=== PATIENT | female | born 1925 | race Caucasian/White ===

== ENCOUNTER 2016-06-21 12:39 | Emergency (ER) | payer OTHER ==
[~2016-06-21] VITALS: Ht 165.1 cm; Wt 44.3 kg
[~2016-06-21 12:39] MED LIST: ACET-1256 PO; ALEN70TA4 PO; AMLO5TAB4 PO; CLON0.5T3 PO; DOCU-94 PO; LSN25 PO; MULT-730 PO; PANT1TAB48 PO; ULT50 PO
[2016-06-21 12:43] VITALS: TEMP 36.7; Ht 165.1 cm; Wt 44.3 kg
[2016-06-21] MEDS ORDERED: SODIUM CHLORIDE 0.9% 1000ML 1,000 ML IV STA (12:52)
[2016-06-21] MEDS ORDERED: ONDANSETRON INJ 2 MG/ML 2 ML VIAL IV STA (12:52)
[2016-06-21] MEDS ORDERED: OPTIRAY 320 IV PRN (13:00)
--- NOTE | 2016-06-21 13:21 | DIAGNOSTIC IMAGING REPORT ---
CHEST ONE VIEW PORTABLE CLINICAL HISTORY: Abdominal pain. COMPARISON STUDY: Chest radiograph January 05, 2016. FINDINGS: A left subclavian pacemaker and cholecystectomy clips are present. There is no pneumothorax or pleural effusion. Pulmonary vascularity is normal. Right apical irregular density is unchanged since exam of February 12, 2012. There is no consolidation. IMPRESSION: No acute cardiopulmonary findings. Electronically signed by: Kurt Alexander M.D. 06/21/2016 1:20 PM Dictated Date/Time: 06/21/2016 1:19 PM
[2016-06-21 13:34] LABS: BASO % 0.4 %; BASO ABS # 0.02 K/uL (0-0.2); COMPLETE YES; EOS % 0.5 %; HEMATOCRIT 44.5 % (37-47); IG% 0.2 %; LYMPH % 23.8 %; LYMPH ABS # 1.35 K/uL (1.2-3.4); MEAN CELL VOLUME 96.5 fL (80-100); MEAN CORPUSCULAR HEMOGLOBIN 32.8 pg (25-34); MEAN CORPUSCULAR HGB CONC 33.9 g/dl (32-36); MEAN PLATELET VOLUME 8.7 fL (7.4-10.4); NEUT % 68.1 %; PLATELET COUNT 161 K/uL (130-400); RED BLOOD COUNT 4.61 M/uL (4.2-5.4); WHITE BLOOD COUNT 5.68 K/uL (4.8-10.8)
[2016-06-21 13:50] LABS: BUN/CREATININE RATIO 14.4 (10-20); CALCIUM 9.8 mg/dl (8.5-10.1); POTASSIUM 3.6 mmol/L (3.5-5.1)
[2016-06-21] MEDS ORDERED: LISI-729 PO (14:48)
[2016-06-21 15:01] LABS: URINE APPEARANCE CLEAR (CLEAR); URINE BILIRUBIN NEG (NEG); URINE COLOR YELLOW; URINE NITRITE NEG (NEG); URINE SPECIFIC GRAVITY 1.007 (1.000-1.030); UROBILINOGEN NEG (NEG); ZZUR CULT IF INDIC CLEAN CATCH NO
[2016-06-21 15:06] LABS: MANUAL MICROSCOPIC REQUIRED? NO; REVIEW REQ? NO
--- NOTE | 2016-06-21 15:53 | DIAGNOSTIC IMAGING REPORT ---
ABDOMEN AND PELVIS CT WITH IV AND ORAL CONTRAST CT DOSE: 250.85 mGy.cm HISTORY: Pain ABDOMINAL PAIN/GI TECHNIQUE: Multiaxial CT images of the abdomen and pelvis were performed following the use of intravenous and oral contrast. COMPARISON STUDY: 10/13/2015 FINDINGS: Lung bases are remarkable for minimal scattered atelectatic change. This is similar as compared to the prior study. Minimal bronchiectatic change medial right base is present. Several small calcified granulomas are noted. Liver is uniform. Mild biliary ductal prominence. Prior cholecystectomy. Mild prominence of the pancreatic duct. Mild fullness of the pancreatic tail. Circumferential wall thickening of the gastric antrum. Mild perigastric infiltrative change. No evidence for abscess or collection. Opacity is a mild nonobstructive ileus. There is no significant free fluid within the pelvic cul-de-sac. Bladder is midline. No significant pelvic or inguinal adenopathy. Kidneys enhance uniformly. There are negative for hydronephrosis. IMPRESSION: 1. Annular thickening of the gastric antrum raising the possibility of gastritis, neoplasm, peptic ulcer disease, versus the less likely possibility of artifact. 2. Endoscopic evaluation is suggested as follow-up. 3. 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 4. No ductal prominence most likely on a postcholecystectomy basis. 5. Mild fullness pancreatic tail uncertain significance although correlation with pancreatic enzymes status is suggested. 6. Mild reactive ileus Electronically signed by: Vance Vance M.D. 06/21/2016 3:52 PM Dictated Date/Time: 06/21/2016 3:45 PM
--- NOTE | 2016-06-21 16:36 | EMERGENCY ROOM VISIT NOTE ---
History Report prepared by Viola: Barbara Calhoun Under the Supervision of: Dr. Fran Garcia D.O. First contact with patient: 12:46 Chief Complaint: ABDOMINAL PAIN Stated Complaint: ABD AND BACK PAIN Nursing Triage Summary: Triage note: pt reports "i am just plain sick and i am having pain from my abd clear through to my back." pt reports pain started this am. History of Present Illness The patient is a 89 year old female who presents to the Emergency Room with complaints of worsening abdominal pain starting last night. The patient currently rates her discomfort as a 5/10 in severity. She had been experiencing this pain in her stomach for a long time, but last night it worsened and went through to her back. She was seen in the ED previously where nothing was found. She went to the doctor's 2 days ago for stomach pain. She was started on pantoprazole. She suspects that the new medication might have something to do with the worsening of her pain. She reports feeling nauseous. She denies any vomiting. She has had a cholecystectomy in the past. She reports no other abdominal surgeries. Source of History: patient Onset: last night Position: abdomen Symptom Intensity: 5/10 Timing: worsening Associated Symptoms: + back pain, + nausea, No vomiting Review of Systems See HPI for pertinent positives & negatives. A total of 10 systems reviewed and were otherwise negative. Past Medical & Surgical Medical Problems: (1) Anxiety (2) Chest pain (3) CKD (chronic kidney disease) stage 3, GFR 30-59 ml/min (4) Compression fracture (5) Compression fracture (6) Constipation (7) Essential hypertension (8) Gastroesophageal reflux disease (9) Tonsil cancer Surgical Problems: (1) H/O colonoscopy (2) H/O endoscopy (3) History of cholecystectomy (4) Pacemaker (5) Status post cholecystectomy (6) TONSIL SURGERY Family History Diabetes mellitus FH: cancer BROTHER SISTER FH: heart disease Hypertension Kidney disease FATHER Social History Smoking Status: Never Smoker Alcohol Use: none Drug Use: none Marital Status: Housing Status: lives with family Occupation Status: retired Current/Historical Medications Scheduled Alendronate Sodium (Fosamax), 70 MG PO WK Amlodipine Besylate (Norvasc), 2.5 MG PO DAILY Lisinopril (Prinivil), 2.5 MG PO DAILY Pantoprazole (Protonix), 40 MG PO DAILY Scheduled PRN Acetaminophen (Tylenol), 2 TAB PO AMPM PRN for Pain Clonazepam (Klonopin), 0.5 MG PO BID PRN for Anxiety Allergies Coded Allergies: Sulfa Antibiotics (Verified Allergy, Unknown, rash, 06/01/14) Physical Exam Vital Signs Date Time Temp Pulse Resp B/P Pulse Ox O2 Delivery O2 Flow Rate FiO2 06/21/16 14:30 75 16 167/94 94 Room Air 06/21/16 12:43 36.7 67 18 178/84 97 Room Air Physical Exam CONSTITUTIONAL/VITAL SIGNS: Reviewed / noted above. GENERAL: Non-toxic in appearance. INTEGUMENTARY: Warm, dry, and [place]. HEAD: Normocephalic. EYES: without scleral icterus or trauma. ENT/OROPHARYNX: clear and moist. LYMPHADENOPATHY/NECK: Is supple without lymphadenopathy or meningismus. RESPIRATORY: Lungs clear and equal. CARDIOVASCULAR: Regular rate and rhythm. GI/ABDOMEN: Soft with mild tenderness to the epigastric area. No organomegaly or pulsatile mass. No rebound or guarding. Normal bowel sounds. EXTREMITIES: Warm and well perfused. BACK: No CVA tenderness. NEUROLOGICAL: Intact without focal deficits. PSYCHIATRIC: normal affect. MUSCULOSKELETAL: Normally developed with good muscle tone. Medical Decision & Procedures ER Provider Diagnostic Interpretation: X ray results and stated below per my interpretation and radiology interpretation. Radiology results as stated below per my review and radiologist interpretation: CHEST ONE VIEW PORTABLE CLINICAL HISTORY: Abdominal pain. COMPARISON STUDY: Chest radiograph January 05, 2016. FINDINGS: A left subclavian pacemaker and cholecystectomy clips are present. There is no pneumothorax or pleural effusion. Pulmonary vascularity is normal. Right apical irregular density is unchanged since exam of February 12, 2012. There is no consolidation. IMPRESSION: No acute cardiopulmonary findings. Electronically signed by: Kurt Alexander M.D. 06/21/2016 1:20 PM Dictated Date/Time: 06/21/2016 1:19 PM ABDOMEN AND PELVIS CT WITH IV AND ORAL CONTRAST CT DOSE: 250.85 mGy.cm HISTORY: Pain ABDOMINAL PAIN/GI TECHNIQUE: Multiaxial CT images of the abdomen and pelvis were performed following the use of intravenous and oral contrast. COMPARISON STUDY: 10/13/2015 FINDINGS: Lung bases are remarkable for minimal scattered atelectatic change. This is similar as compared to the prior study. Minimal bronchiectatic change medial right base is present. Several small calcified granulomas are noted. Liver is uniform. Mild biliary ductal prominence. Prior cholecystectomy. Mild prominence of the pancreatic duct. Mild fullness of the pancreatic tail. Circumferential wall thickening of the gastric antrum. Mild perigastric infiltrative change. No evidence for abscess or collection. Opacity is a mild nonobstructive ileus. There is no significant free fluid within the pelvic cul-de-sac. Bladder is midline. No significant pelvic or inguinal adenopathy. Kidneys enhance uniformly. There are negative for hydronephrosis. IMPRESSION: 1. Annular thickening of the gastric antrum raising the possibility of gastritis, neoplasm, peptic ulcer disease, versus the less likely possibility of artifact. 2. Endoscopic evaluation is suggested as follow-up. 3. 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 4. No ductal prominence most likely on a postcholecystectomy basis. 5. Mild fullness pancreatic tail uncertain significance although correlation with pancreatic enzymes status is suggested. 6. Mild reactive ileus Electronically signed by: Vance Vance M.D. 06/21/2016 3:52 PM Dictated Date/Time: 06/21/2016 3:45 PM Laboratory Results 06/21/16 13:25 Red Blood Count 4.61, Mean Corpuscular Volume 96.5, Mean Corpuscular Hemoglobin 32.8, Mean Corpuscular Hemoglobin Concent 33.9, Mean Platelet Volume 8.7, Neutrophils (%) (Auto) 68.1, Lymphocytes (%) (Auto) 23.8, Monocytes (%) (Auto) 7.0, Eosinophils (%) (Auto) 0.5, Basophils (%) (Auto) 0.4, Neutrophils # (Auto) 3.87, Lymphocytes # (Auto) 1.35, Monocytes # (Auto) 0.40, Eosinophils # (Auto) 0.03, Basophils # (Auto) 0.02 06/21/16 13:25 Test 06/21/16 13:25 06/21/16 14:25 White Blood Count 5.68 K/uL (4.8-10.8) Red Blood Count 4.61 M/uL (4.2-5.4) Hemoglobin 15.1 g/dL (12.0-16.0) Hematocrit 44.5 % (37-47) Mean Corpuscular Volume 96.5 fL (80-100) Mean Corpuscular Hemoglobin 32.8 pg (25-34) Mean Corpuscular Hemoglobin Concent 33.9 g/dl (32-36) Platelet Count 161 K/uL (130-400) Mean Platelet Volume 8.7 fL (7.4-10.4) Neutrophils (%) (Auto) 68.1 % Lymphocytes (%) (Auto) 23.8 % Monocytes (%) (Auto) 7.0 % Eosinophils (%) (Auto) 0.5 % Basophils (%) (Auto) 0.4 % Neutrophils # (Auto) 3.87 K/uL (1.4-6.5) Lymphocytes # (Auto) 1.35 K/uL (1.2-3.4) Monocytes # (Auto) 0.40 K/uL (0.11-0.59) Eosinophils # (Auto) 0.03 K/uL (0-0.5) Basophils # (Auto) 0.02 K/uL (0-0.2) RDW Standard Deviation 47.3 fL (36.4-46.3) RDW Coefficient of Variation 13.4 % (11.5-14.5) Immature Granulocyte % (Auto) 0.2 % Immature Granulocyte # (Auto) 0.01 K/uL (0.00-0.02) Prothrombin Time 11.0 SECONDS (9.0-12.0) Prothromb Time International Ratio 1.0 (0.9-1.1) Activated Partial Thromboplast Time 25.9 SECONDS (21.0-31.0) Partial Thromboplastin Ratio 1.0 Anion Gap 7.0 mmol/L (3-11) Est Creatinine Clear Calc Drug Dose 27.2 ml/min Estimated GFR () 58.3 Estimated GFR (Non- 50.3 BUN/Creatinine Ratio 14.4 (10-20) Lactic Acid Level 0.9 mmol/L (0.4-2.0) Calcium Level 9.8 mg/dl (8.5-10.1) Total Bilirubin 0.5 mg/dl (0.2-1) Direct Bilirubin 0.1 mg/dl (0-0.2) Aspartate Amino Transf (AST/SGOT) 21 U/L (15-37) Alanine Aminotransferase (ALT/SGPT) 20 U/L (12-78) Alkaline Phosphatase 56 U/L (45-117) Total Protein 7.5 gm/dl (6.4-8.2) Albumin 4.0 gm/dl (3.4-5.0) Lipase 244 U/L (73-393) Urine Color YELLOW Urine Appearance CLEAR (CLEAR) Urine pH 7.0 (4.5-7.5) Urine Specific [place] 1.007 (1.000-1.030) Urine Protein NEG (NEG) Urine Glucose (UA) NEG (NEG) Urine Ketones NEG (NEG) Urine Occult Blood TRACE (NEG) Urine Nitrite NEG (NEG) Urine Bilirubin NEG (NEG) Urine Urobilinogen NEG (NEG) Urine Leukocyte Esterase NEG (NEG) Urine WBC (Auto) 0 /hpf (0-5) Urine RBC (Auto) 0-4 /hpf (0-4) Urine Hyaline Casts (Auto) 0 /lpf (0-5) Urine Epithelial Cells (Auto) 5-10 /lpf (0-5) Urine Bacteria (Auto) NEG (NEG) Laboratory results as stated above per my review. Medications Administered Medications (Trade) Dose Ordered Sig/Francine Route Start Time Stop Time Status Last Admin Dose Admin Sodium Chloride (Nss 1000ml) 1,000 ml @ 200 mls/hr Q5H STAT IV 06/21/16 12:52 06/21/16 17:51 06/21/16 13:40 200 MLS/HR Ondansetron HCl (Zofran Inj) 4 mg NOW STAT IV 06/21/16 12:52 06/21/16 12:54 DC 06/21/16 13:40 4 MG ED Course 1247: Previous medical records were reviewed. The patient was evaluated in room C2B. A complete history and physical examination was performed. 1252: Zofran Inj 4 mg IV, NSS 1000 ml @ 200 mls/hr IV. 1615: I discussed the patient's case with Dr. Childress, [facility] - gastroenterology. The patient will follow up in the office next week for EGD. 1629: On reevaluation, the patient is resting comfortably. I discussed the results and findings with the patient. She verbalized agreement of the treatment plan. She was discharged home. Medical Decision Differential considered: pancreatitis, hepatitis, or acute cholecystitis, AAA, UTI, pyelonephritis, kidney stones, appendicitis, diverticulitis, shingles, bowel obstruction mesenteric ischemia, intussusception,hernia. This is an 89-year-old female who presents to the ED with a chief complaint of epigastric abdominal pain that started last night. She reports chronic epigastric pain but it got worse last night and radiates into the back. Her vital signs are stable. Physical exam did not reveal any significant abnormalities other than mild epigastric tenderness. CBC is normal. Chest x- ray was negative for acute disease. Complete metabolic panel was normal. Lactate was negative. Lipase is negative. Urine did not show infection. A CT scan of the abdomen and pelvis revealed some thickening of the gastric antrum. I spoke with Dr. Childress about this. She will contact the patient for outpatient endoscopy next week. The patient was treated as above. The patient is felt to be stable for discharge. Consults Time Called: 1607 Consulting Physician: Dr. Childress, [facility] - gastroenterology Returned Call: 1615 I discussed the patient's case with her. The patient will follow up in the office next week for EGD. Impression Primary Impression: Epigastric abdominal pain Scribe Attestation The scribe's documentation has been prepared under my direction and personally reviewed by me in its entirety. I confirm that the note above accurately reflects all work, treatment, procedures, and medical decision making performed by me. Departure Information Dispostion Home / Self-Care Referrals Kady Benoit M.D. (PCP) Patient Instructions My [facility] Additional Instructions Dr. Childress's office will contact you for endoscopy next week. Return for any concerns or worsening.
[2016-06-21 17:06] VITALS: BP 176/84; PULSE 62; O2SAT 98
== END 2016-06-21 17:10 | disposition home or self-care (01) ==
LOC: C.EDB 12:40 → C.EDC 17:10
DX: R10.13 Epigastric pain (principal); I12.9 Hypertensive chronic kidney disease with stage 1 through stage 4 chronic kidney disease, or unspecified chronic kidney disease; N18.3 Chronic kidney disease, stage 3 (moderate); K21.9 Gastro-esophageal reflux disease without esophagitis; F41.9 Anxiety disorder, unspecified; Z87.81 Personal history of (healed) traumatic fracture; Z90.49 Acquired absence of other specified parts of digestive tract; Z95.0 Presence of cardiac pacemaker; Z79.899 Other long term (current) drug therapy; Z88.2 Allergy status to sulfonamides; Z83.3 Family history of diabetes mellitus; Z80.9 Family history of malignant neoplasm, unspecified; Z82.49 Family history of ischemic heart disease and other diseases of the circulatory system; Z84.1 Family history of disorders of kidney and ureter

== ENCOUNTER → 2016-06-25 | Day surgery (SDC) | payer OTHER ==
[2016-06-24 11:25] VITALS: BMI 16.0
[~2016-06-25] VITALS: Ht 165.1 cm; Wt 45.5 kg
[~2016-06-25] MED LIST changes: -DOCU-94 PO; +LIDOCAINE HCL 2% 2 ML VIAL (20MG/ML) ONE; +LISI-729 PO; -LSN25 PO; -MULT-730 PO; +ONDANSETRON INJ 2 MG/ML 2 ML VIAL IV PRN; +PROPOFOL IV EMULSION 10 MG/ML 20 ML VIAL IV ONE; -ULT50 PO
[2016-06-25 08:54] VITALS: Ht 165.1 cm; Wt 45.5 kg
[2016-06-25 09:00] VITALS: TEMP 36.5
--- NOTE | 2016-06-25 09:15 | Endo History and Physical ---
History & Physical Date of Service: Jun 25, 2016. Chief Complaint: Epigastric pain Referring Physician: Dr. Benoit History of Present Illness 89 year old with abdominal pain for several months. Patient without dysphagia. Past Medical History Neurological Disorder, Osteoporosis, Arthritis, Pacemaker, Gastrointestinal Disorder, Anxiety, Reflux, Cancer, Hypertension, Kidney Disease, Other Past Surgical History Hx Cardiac Surgery: No Hx Internal Defibrillator: No Hx Pacemaker: Yes (~5 YEARS AGO) Hx Abdominal Surgery: Yes (SAVI) Hx of Implantable Prosthesis: No Hx Post-Op Nausea and Vomiting: No Hx Cancer Surgery: Yes (RT TONSILLECTOMY) Hx Thoracic Surgery: No Hx Orthopedic: No Hx Urinary Tract Surgery: No Family History None Social History Smoking Status: Never Smoker Hx Substance Use: No Hx Alcohol Use: No Allergies Coded Allergies: Sulfa Antibiotics (Verified Allergy, Unknown, RASH, 06/24/16) Current Medications Reported Home Medications Medications Dose Route/Sig Max Daily Dose Days Date Category Dose Instructions Prinivil (Lisinopril) 5 Mg Tab 2.5 Mg PO DAILY 06/21/16 Reported Tylenol (Acetaminophen) 500 Mg Tab 2 Tab PO AMPM PRN 01/05/16 Reported Fosamax (Alendronate Sodium) 70 Mg Tab 70 Mg PO WK 01/05/16 Reported TAKES THURSDAYS Protonix (Pantoprazole) 40 Mg Tab 40 Mg PO DAILY 02/12/12 Reported Klonopin (Clonazepam) 0.5 Mg Tab 0.5 Mg PO BID PRN 02/12/12 Reported Norvasc (Amlodipine Besylate) 5 Mg Tab 2.5 Mg PO DAILY 02/12/12 Reported Vital Signs Weight (Kilograms): 45.45 Height (Feet): 5 Height (Inches): 5 Date Time Temp Pulse Resp B/P Pulse Ox O2 Delivery O2 Flow Rate FiO2 06/25/16 09:00 36.5 68 20 173/89 99 Room Air Physical Exam General Appearance: no apparent distress Respiratory/Chest: Auscultation: breath sounds normal Cardiovascular: Heart Auscultation: II/ FLACO Abdomen: Inspection & Palpation: soft, pertinent finding (mild epigastric tenderness) Assessment and Plan Patient with a abdominal pain, likely related to use of a bisphosphonate. Plan EGD today
--- NOTE | 2016-06-25 09:32 | Discharge Instructions ---
Endoscopy Patient Instructions Date / Procedure(s) Performed Jun 25, 2016. EGD Allergy Information Coded Allergies: Sulfa Antibiotics (Verified Allergy, Unknown, RASH, 06/24/16) Discharge Date / Findings Jun 25, 2016. Diffuse gastritis Provider Instructions Activity Restrictions - No exercising or heavy lifting for 24 hours. - Do not drink alcohol the day of the procedure. - Do not drive a car or operate machinery until the day after the procedure. - Do not make any important decisions or sign important papers in 24 hours after the procedure. Following Day: - Return to full activity which may include returning to work/school. Diet Start your diet with liquids and light foods (jello, soup, juice, toast). Then eat your usual diet if not nauseated. Treatment For Common After Affects For mild abdominal pain, bloating, or excessive gas: - Rest - Eat lightly - Lie on right side Follow-Up Information Would suggest stopping the Fosamax as this could be causing your symptoms Continue the Protonix 1 time daily Follow-up with Dr. Benoit Anesthesia Information What You Should Know You have had a procedure that required some medicine to reduce anxiety and discomfort. This treatment is called moderate sedation. After receiving the treatment, you may be sleepy, but you will be able to breathe on your own. The effects of the treatment may last for several hours. Follow these instructions along with Activity/Diet recommendations noted above: * Do NOT do anything where dizziness or clumsiness would be dangerous. * Rest quietly at home today, then you can be up and about tomorrow. * Have a responsible person stay with you the rest of today. * You may have had an I.V. today. If so, you may take the dressing off later today. Recommendations Call your doctor if: * Trouble breathing * Continuous vomiting for more than 24 hours * Temperature above 101 degrees * Severe abdominal pain or bloating * Pain not relieved by pain medicine ordered * There is increased drainage or redness from any incision * A large amount of rectal bleeding greater than 2-3 tablespoons. (If you had a polyp/s removed or have hemorrhoids, a small amount of blood - from the rectum is to be expected.) * You have any unanswered questions or concerns. IN THE EVENT OF A SERIOUS EMERGENCY, GO TO THE NEAREST EMERGENCY ROOM Your discharge instructions were prepared by provider Paola Moore. Patient Instructions Signature Page Christa Showers Patient (or Guardian) Signature/Date: I have read and understand the instructions given to me by my caregivers. Caregiver/RN/Doctor Signature/Date: The above-named patient and/or guardian has received patient instructions on this date. + Original Patient Signature Page (only) stays with chart. Please make copy for patient.
--- NOTE | 2016-06-25 09:46 | GI REPORT ---
Procedure Date: 06/25/2016 9:10 AM Procedure: Upper GI endoscopy Indications: Epigastric abdominal pain Medicines: Monitored Anesthesia Care Complications: No immediate complications. Estimated blood loss: Minimal. Estimated Blood Loss: Estimated blood loss was minimal. Procedure: Pre-Anesthesia Assessment: - Prior to the procedure, a History and Physical was performed, and patient medications, allergies and sensitivities were reviewed. The patient's tolerance of previous anesthesia was reviewed. - The risks and benefits of the procedure and the sedation options and risks were discussed with the patient. All questions were answered and informed consent was obtained. - Patient identification and proposed procedure were verified prior to the procedure by the physician, the nurse and the cooker casing. The procedure was verified in the procedure room. - Pre-procedure physical examination revealed no contraindications to sedation. - ASA Grade Assessment: III - A patient with severe systemic disease. - After reviewing the risks and benefits, the patient was deemed in satisfactory condition to undergo the procedure. - The anesthesia plan was to use monitored anesthesia care (MAC). - Immediately prior to administration of medications, the patient was re-assessed for adequacy to receive sedatives. - The heart rate, respiratory rate, oxygen saturations, blood pressure, adequacy of pulmonary ventilation, and response to care were monitored throughout the procedure. - The physical status of the patient was re-assessed after the procedure. After obtaining informed consent, the endoscope was passed under direct vision. Throughout the procedure, the patient's blood pressure, pulse, and oxygen saturations were monitored continuously. The Scope was introduced through the mouth, and advanced to the third part of duodenum. The upper GI endoscopy was accomplished without difficulty. The patient tolerated the procedure well. Findings: The examined esophagus was normal. The Z-line was regular and was found 38 cm from the incisors. Diffuse moderate inflammation characterized by congestion (edema), erythema and granularity was found in the entire examined stomach. Biopsies were taken with a cold forceps for histology. Estimated blood loss was minimal. The examined duodenum was normal. Impression: - Normal esophagus. - Z-line regular, 38 cm from the incisors. 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 Biopsied. - Normal examined duodenum. Recommendation: - Discharge patient to home (ambulatory). - Advance diet as tolerated today. - Await pathology results. - Consider stopping Fosamax Gwendolyn Andersen DO 06/25/2016 9:46:24 AM This report has been signed electronically. Note Initiated On: 06/25/2016 9:10 AM I attest to the content of the Intraoperative Record and orders documented therein, exceptions below
[2016-06-25 10:07] VITALS: BP 162/76; PULSE 62; O2SAT 96
--- NOTE | 2016-06-25 10:14 | Anesthesiology Progress Note ---
Anesthesia Post Op Note Date & Time Jun 25, 2016 at 10:13 Vital Signs Pain Intensity: 0 Vital Signs Past 12 Hours Date Time Temp Pulse Resp B/P Pulse Ox O2 Delivery O2 Flow Rate FiO2 06/25/16 10:07 62 20 162/76 96 Room Air 06/25/16 09:52 60 16 105/72 99 Room Air 06/25/16 09:36 65 16 111/48 100 Room Air 06/25/16 09:00 36.5 68 20 173/89 99 Room Air Notes Mental Status: alert / awake / arousable, participated in evaluation Pt Amnestic to Procedure: Yes Nausea / Vomiting: adequately controlled Pain: adequately controlled Airway Patency, RR, SpO2: stable & adequate BP & HR: stable & adequate Hydration State: stable & adequate Anesthetic Complications: no major complications apparent
== END | disposition home or self-care (01) ==
LOC: C.GI 08:28
PROVIDERS: ATTEND Internal Medicine Gastroenterology
DX: K29.50 Unspecified chronic gastritis without bleeding (principal); R10.13 Epigastric pain; I10 Essential (primary) hypertension; M81.0 Age-related osteoporosis without current pathological fracture

== ENCOUNTER 2016-10-27 13:23 | Observation (INO) | payer OTHER ==
[~2016-10-27] VITALS: Ht 152.4 cm; Wt 41.0 kg
[~2016-10-27 13:23] MED LIST changes: -LIDOCAINE HCL 2% 2 ML VIAL (20MG/ML) ONE; -ONDANSETRON INJ 2 MG/ML 2 ML VIAL IV PRN; -PROPOFOL IV EMULSION 10 MG/ML 20 ML VIAL IV ONE
[2016-10-27] MEDS ORDERED: NITROGLYCERIN 0.4 MG SL PER TAB CHARGE SL STA (13:42)
[2016-10-27] MEDS ORDERED: ASPIRIN 324 MG CHEW PO STA (13:42)
--- NOTE | 2016-10-27 13:49 | EMERGENCY ROOM VISIT NOTE ---
History First contact with patient: 13:31 Chief Complaint: CHEST PAIN Stated Complaint: PAIN ON LEFT SIDE OF CHEST NEAR PACEMAKER Nursing Triage Summary: pt c/o left chest pain started last night does not radiate has hx of pacer History of Present Illness The patient is a 89 year old female who presents to the Emergency Room with complaints of chest pain. The patient states that the pain started before 9 PM last night. It has been constant. She describes it as squeezing in nature and rates it a 10/10. She states she feels the pain in her back. The patient has had similar pain in the past but states it has never been this bad. 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 The patient follows up regularly with her inhalation therapy teacher. The patient's daughter does not believe she has ever had a catheterization or stress test. The patient has not taking any medication for her pain. She has a history of cholecystectomy. She denies previous history of pancreatitis. She does take a proton pump inhibitor. She denies any headache. She denies any numbness, tingling, weakness in the upper or lower extremities. She denies any pain with inspiration or shortness of breath. She denies any abdominal pain, nausea or vomiting. She denies diarrhea. She denies any hematemesis, hematochezia, hemoptysis. She denies any urinary symptoms. She denies any recent illness, earache, sore throat, cough. Review of Systems A 10 system review of systems was completed with positives and pertinent negatives listed in the HPI. Past Medical/Surgical History Medical Problems: (1) Anxiety (2) Chest pain (3) CKD (chronic kidney disease) stage 3, GFR 30-59 ml/min (4) Compression fracture (5) Compression fracture (6) Constipation (7) Essential hypertension (8) Gastroesophageal reflux disease (9) Tonsil cancer Surgical Problems: (1) H/O colonoscopy (2) H/O endoscopy (3) History of cholecystectomy (4) Pacemaker (5) Status post cholecystectomy (6) TONSIL SURGERY Family History Diabetes mellitus FH: cancer BROTHER SISTER FH: heart disease Hypertension Kidney disease FATHER Social History Smoking Status: Never Smoker Alcohol Use: none Drug Use: none Marital Status: Housing Status: lives with family Occupation Status: retired Current/Historical Medications Scheduled Alendronate Sodium (Fosamax), 70 MG PO WK Amlodipine Besylate (Norvasc), 2.5 MG PO DAILY Lisinopril (Prinivil), 2.5 MG PO DAILY Scheduled PRN Acetaminophen (Tylenol), 2 TAB PO AMPM PRN for Pain Clonazepam (Klonopin), 0.5 MG PO BID PRN for Anxiety Physical Exam Vital Signs Date Time Temp Pulse Resp B/P (MAP) Pulse Ox O2 Delivery O2 Flow Rate FiO2 10/27/16 18:34 36.7 61 15 193/95 97 10/27/16 17:58 61 193/95 97 Room Air 10/27/16 17:46 202/87 10/27/16 17:43 165/116 10/27/16 17:42 202/87 10/27/16 15:10 60 15 97 10/27/16 15:05 60 16 96 10/27/16 15:00 178/85 10/27/16 14:50 60 15 97 10/27/16 14:45 189/88 10/27/16 14:35 61 18 98 10/27/16 14:30 196/88 10/27/16 14:20 60 15 98 10/27/16 14:15 179/79 10/27/16 14:13 60 15 99 Room Air 10/27/16 14:00 157/82 10/27/16 13:58 66 17 95 Room Air 10/27/16 13:53 60 15 97 Room Air 10/27/16 13:51 170/82 10/27/16 13:48 60 7 97 Room Air 10/27/16 13:45 60 10/27/16 13:38 196/87 10/27/16 13:35 Room Air 10/27/16 13:26 36.7 60 18 163/75 97 Room Air Physical Exam VITALS: Vitals are noted on the nurse's note and reviewed by myself. Vital signs stable. The patient is afebrile. She is not tachycardic, tachypneic or hypoxic. GENERAL: This is a frail 89-year-old female, in no acute distress, nondiaphoretic, well-developed well-nourished. SKIN: The skin was without rashes, erythema, edema, or bruising. There is no tenting of the skin. Capillary reflex less than 2 seconds. HEAD: Normocephalic atraumatic. EARS: External auditory canals clear, tympanic membranes pearly nieto without erythema or effusion bilaterally. EYES: Pupils equal round and reactive to light and accommodation. Conjunctivae without injection, sclerae without icterus. Extraocular movements intact. NOSE: Patent, turbinates without inflammation or discharge. MOUTH: Mucous membranes moist. Tonsils are not enlarged. Pharynx without erythema or exudate. Uvula midline. Airway patent. Tongue does not deviate. NECK: Supple without nuchal rigidity. HEART: Regular rate and rhythm . LUNGS: Clear to auscultation bilaterally without wheezes, rales or rhonchi. There is a pacemaker in the left upper chest wall without erythema, warmth, drainage or tenderness. No retractions or accessory muscle use. ABDOMEN: Positive bowel sounds x 4. Soft, nontender, without masses or organomegaly. Johnson sign negative. MUSCULOSKELETAL: No muscle atrophy, erythema, or edema noted. Full range of motion in all extremities. No tenderness to palpation. Strength 5/5 throughout. NEURO: Patient was alert and oriented to person place and time. No focal neurological deficits. Medical Decision & Procedures ER Provider Diagnostic Interpretation: CHEST ONE VIEW PORTABLE HISTORY: Atypical chest pain COMPARISON: Chest 06/21/2016. FINDINGS: Left-sided dual-chamber pacemaker. The heart is normal in size. No pleural effusions. No pneumothorax. No focal lung consolidations. Emphysema. No evidence for pulmonary edema. Stable right apical partially calcified density. IMPRESSION: No significant change compared to the prior study. No acute process. CT DOSE: 189.25 mGy.cm HISTORY: Left-sided chest pain. TECHNIQUE: Multiaxial CT images of the chest were performed following the intravenous administration of contrast to evaluate the pulmonary arteries. Maximal intensity projection images were also obtained. A dose lowering technique was utilized adhering to the principles of ALARA. COMPARISON STUDY: Abdomen and pelvis CT 06/21/2016. FINDINGS: Old mild compression deformities at T9 and T12. The normal caliber thoracic aorta shows no evidence for dissection. The heart is normal in size. No pleural or pericardial effusions. Left-sided pacemaker. No filling defects within the pulmonary arteries to suggest pulmonary embolus. No acute rib fractures. No pneumothorax. The central airways are patent. Mild emphysema. Linear densities at the lingula favor subsegmental atelectasis or scarring. Focal consolidation within the right lung apex with associated traction bronchiectasis and calcification. Therefore, this favors chronic scarring. Cluster of calcified granulomas within the right lower lobe medially. There is also small focal consolidation seen within the base of the right lower lobe posteriorly which is similar to the prior abdomen and pelvis CT. Therefore, this favors chronic atelectasis or scar. The visualized liver and spleen are unremarkable. Questionable thickening of the body of the stomach may be due to underdistention. No mediastinal or hilar lymphadenopathy. IMPRESSION: 1. No evidence for pulmonary embolus. 2. Mild emphysema. 3. Small focal consolidation within the base of the right lower lobe remains unchanged and likely represents chronic atelectasis or scar. 4. Partially calcified scarlike opacity within the right lung apex. 5. Questionable thickening of the body stomach may be due to underdistention. Laboratory Results 10/27/16 13:50 Red Blood Count 4.14, Mean Corpuscular Volume 99.3, Mean Corpuscular Hemoglobin 34.1, Mean Corpuscular Hemoglobin Concent 34.3, Mean Platelet Volume 8.8, Neutrophils (%) (Auto) 71.7, Lymphocytes (%) (Auto) 19.5, Monocytes (%) (Auto) 8.0, Eosinophils (%) (Auto) 0.6, Basophils (%) (Auto) 0.1, Neutrophils # (Auto) 4.93, Lymphocytes # (Auto) 1.34, Monocytes # (Auto) 0.55, Eosinophils # (Auto) 0.04, Basophils # (Auto) 0.01 10/27/16 13:50 Test 10/27/16 13:50 10/27/16 14:00 White Blood Count 6.88 K/uL (4.8-10.8) Red Blood Count 4.14 M/uL (4.2-5.4) Hemoglobin 14.1 g/dL (12.0-16.0) Hematocrit 41.1 % (37-47) Mean Corpuscular Volume 99.3 fL (80-100) Mean Corpuscular Hemoglobin 34.1 pg (25-34) Mean Corpuscular Hemoglobin Concent 34.3 g/dl (32-36) Platelet Count 151 K/uL (130-400) Mean Platelet Volume 8.8 fL (7.4-10.4) Neutrophils (%) (Auto) 71.7 % Lymphocytes (%) (Auto) 19.5 % Monocytes (%) (Auto) 8.0 % Eosinophils (%) (Auto) 0.6 % Basophils (%) (Auto) 0.1 % Neutrophils # (Auto) 4.93 K/uL (1.4-6.5) Lymphocytes # (Auto) 1.34 K/uL (1.2-3.4) Monocytes # (Auto) 0.55 K/uL (0.11-0.59) Eosinophils # (Auto) 0.04 K/uL (0-0.5) Basophils # (Auto) 0.01 K/uL (0-0.2) RDW Standard Deviation 48.4 fL (36.4-46.3) RDW Coefficient of Variation 13.4 % (11.5-14.5) Immature Granulocyte % (Auto) 0.1 % Immature Granulocyte # (Auto) 0.01 K/uL (0.00-0.02) Prothrombin Time 10.9 SECONDS (9.0-12.0) Prothromb Time International Ratio 1.0 (0.9-1.1) Activated Partial Thromboplast Time 25.6 SECONDS (21.0-31.0) Partial Thromboplastin Ratio 1.0 Anion Gap 5.0 mmol/L (3-11) Est Creatinine Clear Calc Drug Dose 35.4 ml/min Estimated GFR () 78.7 Estimated GFR (Non- 67.9 BUN/Creatinine Ratio 20.3 (10-20) Calcium Level 8.9 mg/dl (8.5-10.1) Magnesium Level 2.2 mg/dl (1.8-2.4) Total Bilirubin 0.3 mg/dl (0.2-1) Aspartate Amino Transf (AST/SGOT) 20 U/L (15-37) Alanine Aminotransferase (ALT/SGPT) 20 U/L (12-78) Alkaline Phosphatase 58 U/L (45-117) Total Creatine Kinase 77 U/L (26-192) Creatine Kinase MB 2.1 ng/ml (0.5-3.6) Creatine Kinase MB Ratio 2.7 (0-3.0) Troponin I < 0.015 ng/ml (0-0.045) Total Protein 7.1 gm/dl (6.4-8.2) Albumin 3.7 gm/dl (3.4-5.0) Globulin 3.4 gm/dl (2.5-4.0) Albumin/Globulin Ratio 1.1 (0.9-2) Lipase 256 U/L (73-393) Urine Color YELLOW Urine Appearance CLEAR (CLEAR) Urine pH 7.0 (4.5-7.5) Urine Specific [place] 1.016 (1.000-1.030) Urine Protein NEG (NEG) Urine Glucose (UA) NEG (NEG) Urine Ketones NEG (NEG) Urine Occult Blood TRACE (NEG) Urine Nitrite NEG (NEG) Urine Bilirubin NEG (NEG) Urine Urobilinogen NEG (NEG) Urine Leukocyte Esterase NEG (NEG) Urine WBC (Auto) 1-5 /hpf (0-5) Urine RBC (Auto) 10-30 /hpf (0-4) Urine Hyaline Casts (Auto) 0 /lpf (0-5) Urine Epithelial Cells (Auto) 10-20 /lpf (0-5) Urine Bacteria (Auto) NEG (NEG) Urine Yeast (Auto) (NONE PRSENT) Medications Administered Medications (Trade) Dose Ordered Sig/Francine Route Start Time Stop Time Status Last Admin Dose Admin Aspirin (Aspirin Chew) 324 mg NOW STAT PO 10/27/16 13:42 10/27/16 13:44 DC 10/27/16 13:56 324 MG Nitroglycerin (Nitrostat Tab) 0.4 mg Q5M STAT SL 10/27/16 13:42 10/27/16 13:44 DC 10/27/16 13:56 0.4 MG Sodium Chloride 1,000 ml @ 125 mls/hr Q8H STAT IV 10/27/16 13:52 10/27/16 21:51 10/27/16 13:59 125 MLS/HR Procedure The patient was monitored on a automotive general manager. They maintained a normal sinus rhythm without ectopy. ECG Indication: chest pain Rate (beats per minute): 60 Rhythm: other (age paced rhythm) Findings: paced rhythm Change: no significant change ED Course The patient was seen and examined. Previous visits were reviewed. The patient does not have a fever or leukocytosis. She is not anemic. She does not have any significant electrolyte abnormalities. Cardiac enzymes are not elevated. Lipase is not elevated. INR is 1.0. Urinalysis suggests contamination and hematuria. Chest x-ray did not reveal any acute abnormality CTA of the chest was negative for pulmonary embolus but does reveal some chronic scarring The patient was gently hydrated with normal saline She was given aspirin and sublingual nitroglycerin. She had subjective improvement in her pain but did have difficulty evaluating her pain level. She declined any additional pain medication. The patient presents to the emergency department with left-sided chest pain which she describes as squeezing in nature. It radiates to the back. The patient has a history of hypertension. She is 89 years old. She does have a pacemaker. Her initial evaluation in the emergency department does not reveal any acute cardiac abnormality. However, the patient would benefit from further evaluation and management in the hospital. The case was discussed with the [facility] service and they will evaluate the patient. The patient was also seen and examined by who agrees with the assessment and treatment plan. Medical Decision DIFFERENTIAL DIAGNOSIS: Aortic dissection, myocarditis, pericarditis, cervical disc disease, costochondritis, herpes zoster, rib fracture, pleuritis, pneumonia , pulmonary embolus, tension pneumothorax, anxiety disorder, somatoform disorder , choledocholithiasis, status, esophagitis, esophageal spasm, esophageal reflux , esophageal rupture, pancreatitis, peptic ulcer disease, cardiac ischemia, ST elevation ID, acute coronary syndrome, arrhythmia, coronary artery vasospasm. vavular heart disease, coronary artery disease, among others. Medication Reconcilliation Current Medication List: was personally reviewed by me Blood Pressure Screening Patient's blood pressure: Elevated blood pressure Blood pressure disposition: Referred to PCP Impression Primary Impression: Substernal precordial chest pain Departure Information Referrals Kady Benoit M.D. (PCP) Patient Instructions [facility]
[2016-10-27] MEDS ORDERED: SODIUM CHLORIDE 0.9% 1000ML 1,000 ML IV STA (13:52)
[2016-10-27 14:04] LABS: BASO % 0.1 %; BASO ABS # 0.01 K/uL (0-0.2); COMPLETE YES; EOS % 0.6 %; HEMATOCRIT 41.1 % (37-47); IG% 0.1 %; LYMPH % 19.5 %; LYMPH ABS # 1.34 K/uL (1.2-3.4); MEAN CELL VOLUME 99.3 fL (80-100); MEAN CORPUSCULAR HEMOGLOBIN 34.1 pg (25-34); MEAN CORPUSCULAR HGB CONC 34.3 g/dl (32-36); MEAN PLATELET VOLUME 8.8 fL (7.4-10.4); NEUT % 71.7 %; PLATELET COUNT 151 K/uL (130-400); RED BLOOD COUNT 4.14 M/uL (4.2-5.4); WHITE BLOOD COUNT 6.88 K/uL (4.8-10.8)
[2016-10-27 14:12] LABS: PROTHROMBIN TIME (PATIENT) 10.9 SECONDS (9.0-12.0)
[2016-10-27 14:22] LABS: ALT/SGPT 20 U/L (12-78); BLOOD UREA NITROGEN 16 mg/dl (7-18); BUN/CREATININE RATIO 20.3 (10-20); CALCIUM 8.9 mg/dl (8.5-10.1); CARBON DIOXIDE 33 mmol/L (21-32); CHLORIDE 101 mmol/L (98-107); CREATININE 0.78 mg/dl (0.60-1.20); GLUCOSE 103 mg/dl (70-99); MAGNESIUM 2.2 mg/dl (1.8-2.4); POTASSIUM 3.8 mmol/L (3.5-5.1); SODIUM 139 mmol/L (136-145)
[2016-10-27 14:27] LABS: ALB/GLOB RATIO 1.1 (0.9-2); ALKALINE PHOSPHATASE 58 U/L (45-117); AST/SGOT 20 U/L (15-37); CKMB/CK RATIO 2.7 (0-3.0)
[2016-10-27 14:31] LABS: URINE APPEARANCE CLEAR (CLEAR); URINE BILIRUBIN NEG (NEG); URINE COLOR YELLOW; URINE NITRITE NEG (NEG); URINE SPECIFIC GRAVITY 1.016 (1.000-1.030); UROBILINOGEN NEG (NEG); ZZUR CULT IF INDIC CLEAN CATCH YES
--- NOTE | 2016-10-27 14:32 | DIAGNOSTIC IMAGING REPORT ---
CHEST ONE VIEW PORTABLE HISTORY: Atypical chest pain COMPARISON: Chest 06/21/2016. FINDINGS: Left-sided dual-chamber pacemaker. The heart is normal in size. No pleural effusions. No pneumothorax. No focal lung consolidations. Emphysema. No evidence for pulmonary edema. Stable right apical partially calcified density. IMPRESSION: No significant change compared to the prior study. No acute process. Electronically signed by: Osmani Keller M.D. 10/27/2016 2:30 PM Dictated Date/Time: 10/27/2016 2:29 PM
[2016-10-27 14:35] LABS: MANUAL MICROSCOPIC REQUIRED? NO; REVIEW REQ? YES
[2016-10-27] MEDS ORDERED: OPTIRAY 320 IV PRN (15:15)
--- NOTE | 2016-10-27 15:43 | DIAGNOSTIC IMAGING REPORT ---
CHEST CTA for PULMONARY ARTERIES CT DOSE: 189.25 mGy.cm HISTORY: Left-sided chest pain. TECHNIQUE: Multiaxial CT images of the chest were performed following the intravenous administration of contrast to evaluate the pulmonary arteries. Maximal intensity projection images were also obtained. A dose lowering technique was utilized adhering to the principles of ALARA. COMPARISON STUDY: Abdomen and pelvis CT 06/21/2016. FINDINGS: Old mild compression deformities at T9 and T12. The normal caliber thoracic aorta shows no evidence for dissection. The heart is normal in size. No pleural or pericardial effusions. Left-sided pacemaker. No filling defects within the pulmonary arteries to suggest pulmonary embolus. No acute rib fractures. No pneumothorax. The central airways are patent. Mild emphysema. Linear densities at the lingula favor subsegmental atelectasis or scarring. Focal consolidation within the right lung apex with associated traction bronchiectasis and calcification. Therefore, this favors chronic scarring. Cluster of calcified granulomas within the right lower lobe medially. There is also small focal consolidation seen within the base of the right lower lobe posteriorly which is similar to the prior abdomen and pelvis CT. Therefore, this favors chronic atelectasis or scar. The visualized liver and spleen are unremarkable. Questionable thickening of the body of the stomach may be due to underdistention. No mediastinal or hilar lymphadenopathy. IMPRESSION: 1. No evidence for pulmonary embolus. 2. Mild emphysema. 3. Small focal consolidation within the base of the right lower lobe remains unchanged and likely represents chronic atelectasis or scar. 4. Partially calcified scarlike opacity within the right lung apex. 5. Questionable thickening of the body stomach may be due to underdistention. Electronically signed by: Osmani Keller M.D. 10/27/2016 3:42 PM Dictated Date/Time: 10/27/2016 3:32 PM
[2016-10-27] MEDS ORDERED: POLYETHYLENE (MIRALAX) 17 GM PACK PO PRN (17:15)
[2016-10-27] MEDS ORDERED: ACETAMINOPHEN 325 MG TAB PO PRN (17:15)
[2016-10-27] MEDS ORDERED: ONDANSETRON INJ 2 MG/ML 2 ML VIAL IV PRN (17:15)
[2016-10-27] MEDS ORDERED: TRAMADOL HCL 50 MG TAB PO PRN (17:30)
[2016-10-27] MEDS ORDERED: CLONAZEPAM 0.5 MG TAB PO PRN (17:30)
--- NOTE | 2016-10-27 17:40 | History and Physical ---
History & Physical Date & Time of Service: Oct 27, 2016 at 17:21 Chief Complaint: Pain On Left Side Of Chest Near Pacemaker Primary Care Physician: Beatrice Kennedy D.O. History of Present Illness Source: patient, family Patient is an 89 yo female who resides alone, who came in today for complaints of chest pain that began last night while at rest, and that has continued on today without changing. Her daughter lives in the area and checks in on her every other day and decided to bring the patient in today. The patient did not call anyone last night to tell them about this pain. She denies any associated symptoms of palpitations, SOB, cough, N/V, or diaphoresis. She states she has been in her good usual state of health until last night. She denies any falls, injuries, or twisting movements that might have preceded the pain. Her pain is not made worse by anything except movement and deep breathing. No tenderness to palpation. No recent medication changes. Past Medical/Surgical History Medical Problems: (1) Anxiety Status: Chronic (2) CKD (chronic kidney disease) stage 3, GFR 30-59 ml/min Status: Chronic (3) Compression fracture Status: Resolved (4) Compression fracture Status: Resolved (5) Constipation Status: Chronic (6) Essential hypertension Status: Chronic (7) Gastroesophageal reflux disease Status: Chronic (8) Tonsil cancer Status: Resolved Surgical Problems: (1) H/O colonoscopy Status: Resolved (2) H/O endoscopy Status: Resolved (3) History of cholecystectomy Status: Chronic (4) Pacemaker Permanent Comment: H/O Bradycardia Status: Chronic (5) Status post cholecystectomy Status: Resolved (6) TONSIL SURGERY Status: Resolved Family History Diabetes mellitus FH: cancer BROTHER SISTER FH: heart disease Hypertension Kidney disease FATHER Social History Smoking Status: Never Smoker Drug Use: none Marital Status: Housing status: lives alone Occupational Status: retired Multi-Drug Resistant Organisms History of MDRO: No Allergies Coded Allergies: Sulfa Antibiotics (Verified Allergy, Unknown, RASH, 10/27/16) Home Medications Scheduled Alendronate Sodium (Fosamax), 70 MG PO WK Amlodipine Besylate (Norvasc), 2.5 MG PO DAILY Lisinopril (Prinivil), 2.5 MG PO DAILY Scheduled PRN Acetaminophen (Tylenol), 2 TAB PO AMPM PRN for Pain Clonazepam (Klonopin), 0.5 MG PO BID PRN for Anxiety Review of Systems Constitutional: No fever, No chills, No sweats, No weight loss Eyes: No worsening of vision, No eye pain, No redness, No diplopia ENT: No hearing loss, No nasal symptoms, No sore throat, No trouble swallowing Respiratory: No cough, No sputum, No wheezing, No shortness of breath Cardiovascular: + chest pain, + edema, No claudication, No palpitations Abdomen: No pain, No nausea, No vomiting, No diarrhea, No GI bleeding Musculoskeletal: + swelling, No joint pain, No muscle pain, No calf pain Genitourinary - Female: No dysuria, No urinary frequency, No urinary urgency, No urinary incontinence Neurologic: No memory loss, No paralysis, No numbness/tingling, No vertigo, No balance problems Psychiatric: + anxiety, No depression symptoms, No insomnia, No substance abuse Endocrine: No problem reported Hematologic / Lymphatic: No abnormal bleeding/bruising, No clotting problems, No problem reported Integumentary: No rash, No itch, No problem reported Physical Exam Vital Signs Date Time Temp Pulse Resp B/P (MAP) Pulse Ox O2 Delivery O2 Flow Rate FiO2 10/27/16 15:05 60 16 96 10/27/16 15:00 178/85 10/27/16 14:50 60 15 97 10/27/16 14:45 189/88 10/27/16 14:35 61 18 98 10/27/16 14:30 196/88 10/27/16 14:20 60 15 98 10/27/16 14:15 179/79 10/27/16 14:13 60 15 99 Room Air 10/27/16 14:00 157/82 10/27/16 13:58 66 17 95 Room Air 10/27/16 13:53 60 15 97 Room Air 10/27/16 13:51 170/82 10/27/16 13:48 60 7 97 Room Air 10/27/16 13:45 60 10/27/16 13:38 196/87 10/27/16 13:35 Room Air 10/27/16 13:26 36.7 60 18 163/75 97 Room Air General Appearance: WD/WN, no apparent distress, + thin Head: normocephalic, atraumatic Eyes: PERRL, EOMI, sclerae normal ENT: hearing grossly normal Neck: supple, no JVD, no carotid bruits, trachea midline Respiratory/Chest: lungs clear, normal breath sounds, no respiratory distress, + pertinent finding (pain across left chest from sternum to below left axilla worse with deep breath) Cardiovascular: regular rate, rhythm, no gallop, no JVD, no murmur Abdomen/GI: normal bowel sounds, non tender, soft, no organomegaly Extremities/Musculoskelatal: no calf tenderness, normal capillary refill, + pedal edema Neurologic/Psych: no motor/sensory deficits, alert, normal mood/affect, oriented x 3 Skin: normal color, warm/dry, no rash Diagnostics Laboratory Results Results Past 24 Hours Test 10/27/16 13:50 10/27/16 14:00 Range/Units White Blood Count 6.88 4.8-10.8 K/uL Red Blood Count 4.14 4.2-5.4 M/uL Hemoglobin 14.1 12.0-16.0 g/dL Hematocrit 41.1 37-47 % Mean Corpuscular Volume 99.3 80-100 fL Mean Corpuscular Hemoglobin 34.1 25-34 pg Mean Corpuscular Hemoglobin Concent 34.3 32-36 g/dl Platelet Count 151 130-400 K/uL Mean Platelet Volume 8.8 7.4-10.4 fL Neutrophils (%) (Auto) 71.7 % Lymphocytes (%) (Auto) 19.5 % Monocytes (%) (Auto) 8.0 % Eosinophils (%) (Auto) 0.6 % Basophils (%) (Auto) 0.1 % Neutrophils # (Auto) 4.93 1.4-6.5 K/uL Lymphocytes # (Auto) 1.34 1.2-3.4 K/uL Monocytes # (Auto) 0.55 0.11-0.59 K/uL Eosinophils # (Auto) 0.04 0-0.5 K/uL Basophils # (Auto) 0.01 0-0.2 K/uL RDW Standard Deviation 48.4 36.4-46.3 fL RDW Coefficient of Variation 13.4 11.5-14.5 % Immature Granulocyte % (Auto) 0.1 % Immature Granulocyte # (Auto) 0.01 0.00-0.02 K/uL Prothrombin Time 10.9 9.0-12.0 SECONDS Prothromb Time International Ratio 1.0 0.9-1.1 Activated Partial Thromboplast Time 25.6 21.0-31.0 SECONDS Partial Thromboplastin Ratio 1.0 Sodium Level 139 136-145 mmol/L Potassium Level 3.8 3.5-5.1 mmol/L Chloride Level 101 98-107 mmol/L Carbon Dioxide Level 33 21-32 mmol/L Anion Gap 5.0 3-11 mmol/L Blood Urea Nitrogen 16 7-18 mg/dl Creatinine 0.78 0.60-1.20 mg/dl Est Creatinine Clear Calc Drug Dose 35.4 ml/min Estimated GFR () 78.7 Estimated GFR (Non- 67.9 BUN/Creatinine Ratio 20.3 10-20 Random Glucose 103 70-99 mg/dl Calcium Level 8.9 8.5-10.1 mg/dl Magnesium Level 2.2 1.8-2.4 mg/dl Total Bilirubin 0.3 0.2-1 mg/dl Aspartate Amino Transf (AST/SGOT) 20 15-37 U/L Alanine Aminotransferase (ALT/SGPT) 20 12-78 U/L Alkaline Phosphatase 58 45-117 U/L Total Creatine Kinase 77 26-192 U/L Creatine Kinase MB 2.1 0.5-3.6 ng/ml Creatine Kinase MB Ratio 2.7 0-3.0 Troponin I < 0.015 0-0.045 ng/ml Total Protein 7.1 6.4-8.2 gm/dl Albumin 3.7 3.4-5.0 gm/dl Globulin 3.4 2.5-4.0 gm/dl Albumin/Globulin Ratio 1.1 0.9-2 Lipase 256 73-393 U/L Urine Color YELLOW Urine Appearance CLEAR CLEAR Urine pH 7.0 4.5-7.5 Urine Specific [place] 1.016 1.000-1.030 Urine Protein NEG NEG Urine Glucose (UA) NEG NEG Urine Ketones NEG NEG Urine Occult Blood TRACE NEG Urine Nitrite NEG NEG Urine Bilirubin NEG NEG Urine Urobilinogen NEG NEG Urine Leukocyte Esterase NEG NEG Urine WBC (Auto) 1-5 0-5 /hpf Urine RBC (Auto) 10-30 0-4 /hpf Urine Hyaline Casts (Auto) 0 0-5 /lpf Urine Epithelial Cells (Auto) 10-20 0-5 /lpf Urine Bacteria (Auto) NEG NEG Urine Yeast (Auto) NONE PRSENT Microbiology Results 10/27/16 Urine Culture, Received Pending EKG EKG pending Impression Assessment and Plan CHEST PAIN: -constant, squeezing pain since last night, began at rest -unlikely Cardiac, more likely related to musculoskeletal etiology or GI source -will obtain TTE and serial CM to rule out ACS -CT chest negative for PE, pneumonia; mentions some possible thickening of the stomach -did have an EGD in June that revealed diffuse gastritis and was advised to stop taking fosamax -pain control -incentive spirometry -will also provide PPI and PRN GI cocktail HTN: -stable -continue home meds ANXIETY: -stable -continue clonopin BRADYCARDIA: -s/p pacemaker -follows with Cardiology Dr. Abarca as outpatient Level of Care Telemetry Resuscitation Status DO NOT RESUSCITATE VTE Prophylaxis VTE Risk Assessment Done? Y/N: Yes Risk Level: Moderate Given or contraindicated: Enoxaparin (Lovenox)SQ
[2016-10-27] MEDS ORDERED: GI COCKTAIL PO ONE (17:45)
[2016-10-27] MEDS ORDERED: IV FLUIDS COMPLETED PRN (18:45)
--- NOTE | 2016-10-27 19:29 | DIAGNOSTIC IMAGING REPORT ---
BILATERAL LOWER EXTREMITY VENOUS DOPPLER HISTORY: Leg swelling. rule out DVT COMPARISON STUDY: None. FINDINGS: There is normal compressibility, flow, and augmentation within the bilateral lower extremity deep venous systems. IMPRESSION: No DVT within the right or left lower extremity. Electronically signed by: Osmani Keller M.D. 10/27/2016 7:28 PM Dictated Date/Time: 10/27/2016 7:28 PM
[2016-10-27 19:30] VITALS: BP 191/98; PULSE 60; TEMP 37; O2SAT 95
[2016-10-27] MEDS ORDERED: ALUMINUM/MAGNESIUM SUSP 18 ML, LIDOCAINE HCL 2% VISCOUS SOLN 6 ML, BARCODE IDENTIFIER 1 EA PO ONE ×2 (20:00)
[2016-10-27] MEDS: HEPARIN SOD 5000 UNIT/0.5 ML CARP SQ SCH (21:00)
[2016-10-27 22:07] VITALS: BP 191/98; PULSE 60; TEMP 37; O2SAT 95; Ht 152.4 cm; Wt 41.0 kg
[2016-10-27 23:48] VITALS: BP 167/70; PULSE 60; TEMP 36.7; O2SAT 97
[2016-10-28 00:22] LABS: CKMB/CK RATIO 2.5 (0-3.0)
[2016-10-28 05:07] VITALS: BP 148/63; PULSE 59; TEMP 36.7; O2SAT 96
[2016-10-28 07:27] VITALS: BP_SYST 151; BP_SYST 168; BP_DIAS 63; BP_DIAS 76; PULSE 59; TEMP 36.4; O2SAT 97
[2016-10-28] MEDS: HEPARIN SOD 5000 UNIT/0.5 ML CARP SQ SCH (07:50)
[2016-10-28 08:19] LABS: CHOLESTEROL 151 mg/dl (0-200); CHOLESTEROL/HDL RATIO 2.3; CKMB/CK RATIO 2.3 (0-3.0); HDL CHOLESTEROL 65 mg/dl; LDL CHOLESTEROL CALCULATED 72 mg/dl; TRIGLYCERIDES 70 mg/dl (0-150); VERY LOW DENSITY LIPOPROT CALC 14 mg/dl
[2016-10-28] MEDS ORDERED: ENOXAPARIN 30 MG/0.3 ML SYR SC SCH (09:00)
[2016-10-28] MEDS ORDERED: AMLODIPINE BESYLATE 5 MG TAB PO SCH (09:00)
[2016-10-28] MEDS ORDERED: PANTOprazole SOD 40 MG TAB PO SCH (09:00)
[2016-10-28] MEDS ORDERED: LISINOPRIL 2.5 MG TAB PO SCH (09:00)
--- NOTE | 2016-10-28 10:20 | Progress Note ---
Medicine Progress Note Date & Time of Visit: Oct 28, 2016 at 09:58. Subjective Pt was seen and examined Lying in bed comfortable with no distress Pt said that she feels tired because of all the test she has been doing since woke up this morning Pt said that she does not feel any sore across her chest area today She said that she feels like she wants to move her bowel denies any chest pain, palpitation, dizziness and sob Objective Last 8 Hrs Date Time Temp Pulse Resp B/P (MAP) Pulse Ox O2 Delivery O2 Flow Rate FiO2 10/28/16 08:15 Room Air 10/28/16 07:27 36.4 59 18 168/76 (106) 97 151/63 (92) 10/28/16 05:07 36.7 59 20 148/63 (91) 96 Room Air 10/28/16 04:00 Room Air Physical Exam: General- No acute distress Head- atraumatic Eyes- PERRL, EOMI ENT- oropharynx clear Neck- supple, no JVD Lungs- No wheezing, No crackle Heart- regular rhythm Abdomen- normal bowel sounds, soft Extremities- no pretibial edema, no calf tenderness Neuro- alert, oriented x 3; PERRL, EOMI; no facial palsy Skin- warm & dry Laboratory Results: Last 24 Hours Test 10/27/16 13:50 10/27/16 14:00 10/27/16 23:22 10/28/16 07:31 White Blood Count 6.88 K/uL Red Blood Count 4.14 M/uL Hemoglobin 14.1 g/dL Hematocrit 41.1 % Mean Corpuscular Volume 99.3 fL Mean Corpuscular Hemoglobin 34.1 pg Mean Corpuscular Hemoglobin Concent 34.3 g/dl Platelet Count 151 K/uL Mean Platelet Volume 8.8 fL Neutrophils (%) (Auto) 71.7 % Lymphocytes (%) (Auto) 19.5 % Monocytes (%) (Auto) 8.0 % Eosinophils (%) (Auto) 0.6 % Basophils (%) (Auto) 0.1 % Neutrophils # (Auto) 4.93 K/uL Lymphocytes # (Auto) 1.34 K/uL Monocytes # (Auto) 0.55 K/uL Eosinophils # (Auto) 0.04 K/uL Basophils # (Auto) 0.01 K/uL RDW Standard Deviation 48.4 fL RDW Coefficient of Variation 13.4 % Immature Granulocyte % (Auto) 0.1 % Immature Granulocyte # (Auto) 0.01 K/uL Prothrombin Time 10.9 SECONDS Prothromb Time International Ratio 1.0 Activated Partial Thromboplast Time 25.6 SECONDS Partial Thromboplastin Ratio 1.0 Sodium Level 139 mmol/L Potassium Level 3.8 mmol/L Chloride Level 101 mmol/L Carbon Dioxide Level 33 mmol/L Anion Gap 5.0 mmol/L Blood Urea Nitrogen 16 mg/dl Creatinine 0.78 mg/dl Est Creatinine Clear Calc Drug Dose 35.4 ml/min Estimated GFR () 78.7 Estimated GFR (Non- 67.9 BUN/Creatinine Ratio 20.3 Random Glucose 103 mg/dl Calcium Level 8.9 mg/dl Magnesium Level 2.2 mg/dl Total Bilirubin 0.3 mg/dl Aspartate Amino Transf (AST/SGOT) 20 U/L Alanine Aminotransferase (ALT/SGPT) 20 U/L Alkaline Phosphatase 58 U/L Total Creatine Kinase 77 U/L 80 U/L 73 U/L Creatine Kinase MB 2.1 ng/ml 2.0 ng/ml 1.7 ng/ml Creatine Kinase MB Ratio 2.7 2.5 2.3 Troponin I < 0.015 ng/ml < 0.015 ng/ml < 0.015 ng/ml Total Protein 7.1 gm/dl Albumin 3.7 gm/dl Globulin 3.4 gm/dl Albumin/Globulin Ratio 1.1 Lipase 256 U/L Urine Color YELLOW Urine Appearance CLEAR Urine pH 7.0 Urine Specific [place] 1.016 Urine Protein NEG Urine Glucose (UA) NEG Urine Ketones NEG Urine Occult Blood TRACE Urine Nitrite NEG Urine Bilirubin NEG Urine Urobilinogen NEG Urine Leukocyte Esterase NEG Urine WBC (Auto) 1-5 /hpf Urine RBC (Auto) 10-30 /hpf Urine Hyaline Casts (Auto) 0 /lpf Urine Epithelial Cells (Auto) 10-20 /lpf Urine Bacteria (Auto) NEG Urine Yeast (Auto) Triglycerides Level 70 mg/dl Cholesterol Level 151 mg/dl HDL Cholesterol 65 mg/dl LDL Cholesterol, Calculated 72 mg/dl VLDL Cholesterol, Calculated 14 mg/dl Cholesterol/HDL Ratio 2.3 Date/Time Source Procedure Growth Status 10/27/16 14:00 Urine , Clean Catch Urine Culture - Final MORE THAN THREE TYPES OF ORGANISMS MA... Complete Assessment & Plan CHEST PAIN Atypical features Possible related to musculoskeletal etiology or GI etiology Need to R/O ACS All 3 sets CM negative EKG showed no ischemic changes CTA chest done showed no evidence for PE Doppler of LE showed no DVT EGD done in June showed diffuse gastritis and she was advised to stop taking Fosamax, will defer to pcp to d/c Received Aspirin in the ER Continue PPI Incentive spirometry ECHO pending Asymptomatic currently HTN: BP elevated, might be situational (being in the hospital), anxiety On amlodipine 2.5 mg and lisinopril 2.5 mg Consider to increase the lisinopril to 5 mg daily if BP stays elevating Will continue monitor BP ANXIETY: stable continue clonopin BRADYCARDIA: s/p pacemaker follows with Cardiology Dr. Abarca as outpatient DVT px on heparin subq CODE STATUS DNR Current Inpatient Medications: Current Inpatient Medications Medications (Trade) Dose Ordered Sig/Francine Route Start Time Stop Time Status Last Admin Dose Admin Ioversol (Optiray 320) 100 ml UD PRN IV 10/27/16 15:15 10/31/16 15:14 Acetaminophen (Tylenol Tab) 650 mg Q4H PRN PO 10/27/16 17:15 11/26/16 17:14 Ondansetron HCl (Zofran Inj) 4 mg Q6H PRN IV 10/27/16 17:15 11/26/16 17:14 Polyethylene (Miralax Powder Packet) 17 gm DAILY PRN PO 10/27/16 17:15 11/26/16 17:14 Amlodipine Besylate (Norvasc Tab) 2.5 mg DAILY PO 10/28/16 09:00 11/27/16 08:59 10/28/16 07:50 2.5 MG Clonazepam (Klonopin Tab) 0.5 mg BID PRN PO 10/27/16 17:30 11/26/16 17:29 10/27/16 21:01 0.5 MG Lisinopril (Zestril Tab) 2.5 mg DAILY PO 10/28/16 09:00 11/27/16 08:59 10/28/16 07:50 2.5 MG Tramadol HCl (Ultram Tab) 50 mg Q6 PRN PO 10/27/16 17:30 11/26/16 17:29 10/27/16 21:01 50 MG Pantoprazole Sodium (Protonix Tab) 40 mg DAILY PO 10/28/16 09:00 11/27/16 08:59 10/28/16 07:50 40 MG Miscellaneous (Iv Fluids Completed) 1 ea PRN PRN N/A 10/27/16 18:45 10/27/17 18:44 Heparin Sodium (Porcine) (Heparin Sq 5000 Unit/0.5ml) 5,000 unit Q12H SQ 10/27/16 21:00 11/26/16 20:59
--- NOTE | 2016-10-28 10:30 | ECHOCARDIOGRAM REPORT ---
*NOTICE TO RECEIVING [employer] AGENCY This information is strictly Confidential and protected under [place] law. [place] law prohibits you from making any further disclosure of this information unless further disclosure is expressly permitted by the written consent of the person to whom it pertains or is authorized by law. A general authorization for the release of medical or other information is not sufficient for this purpose. Hospital accepts no responsibility if the information is made available to any other person, INCLUDING THE PATIENT. Interpretation Summary * Name: ADRIA MAC Study Date: 10/28/2016 08:39 AM BP: 148/63 mmHg * Patient Location: [facility]\S\N284\S\2 HR: 77 * : 1925 (M/d/yyyy) Gender: Female Height: 65 in * Age: 89 yrs Ethnicity: CA Weight: 99 lb * Ordering Physician: Stephy Sheets * Performed By: Yessy Hooper * * Reason For Study: CHEST PAIN * BSA: 1.5 m2 * -- Conclusions -- * The left ventricle is normal in size. * Ejection Fraction = 60-65%. * The left ventricular wall motion is normal. * Grade I diastolic dysfunction, (abnormal relaxation pattern). * The right ventricular systolic function is normal. * The left atrial size is normal. * Right atrial size is normal. Procedure Details * A complete two-dimensional transthoracic echocardiogram was performed (2D, M-mode, Doppler and color flow Doppler). Left Ventricle * The left ventricle is normal in size. * Ejection Fraction = 60-65%. * Left ventricular systolic function is normal. * The left ventricular wall motion is normal. Right Ventricle * There is a pacemaker lead in the right ventricle. * The right ventricle is normal size. * The right ventricular systolic function is normal. Atria * The left atrial size is normal. * Right atrial size is normal. * No ASD detected; PFO is not assessed. Mitral Valve * The mitral valve is grossly normal. * Significant mitral regurgitation is absent. Tricuspid Valve * The tricuspid valve leaflets are thickened and/or calcified, but open well. * Significant tricuspid regurgitation is absent. Aortic Valve * The aortic valve is not well visualized. * No hemodynamically significant valvular aortic stenosis. * Trace aortic regurgitation. Pulmonic Valve * The pulmonic valve is not well visualized. Great Vessels * The aortic root and proximal ascending aorta are normal sized. Pericardium/Pleural * There is no pericardial effusion. Left Ventricular Diastolic Function * Grade I diastolic dysfunction, (abnormal relaxation pattern). MMode 2D Measurements and Calculations IVSd 0.87 cm IVSs 1.3 cm LVIDd 3.0 cm LVIDs 2.0 cm LVPWd 0.78 cm LVPWs 1.1 cm IVS/LVPW 1.1 FS 32.9 % EDV(Teich) 34.8 ml ESV(Teich) 12.9 ml EF(Teich) 63.0 % EDV(cubed) 26.8 ml ESV(cubed) 8.1 ml EF(cubed) 69.8 % % IVS thick 51.6 % % LVPW thick 40.1 % LV mass(C)d 61.8 grams LV mass(C)dI 42.1 grams/m\S\2 LV mass(C)s 65.9 grams LV mass(C)sI 45.0 grams/m\S\2 CO(Teich) 1.3 l/min CI(Teich) 0.90 l/min/m\S\2 SV(Teich) 22.0 ml SI(Teich) 15.0 ml/m\S\2 CO(cubed) 1.1 l/min CI(cubed) 0.77 l/min/m\S\2 SV(cubed) 18.7 ml SI(cubed) 12.8 ml/m\S\2 ACS 1.3 cm LA dimension 2.5 cm asc Aorta Diam 2.8 cm LVOT diam 1.9 cm LVOT area 2.7 cm\S\2 LVAd ap4 14.0 cm\S\2 LVLd ap4 5.8 cm EDV(MOD-sp4) 28.0 ml LVAs ap4 7.6 cm\S\2 LVLs ap4 5.1 cm ESV(MOD-sp4) 10.0 ml EF(MOD-sp4) 64.3 % LVAd ap2 14.7 cm\S\2 LVLd ap2 5.7 cm EDV(MOD-sp2) 32.0 ml LVAs ap2 8.0 cm\S\2 LVLs ap2 4.6 cm ESV(MOD-sp2) 12.0 ml EF(MOD-sp2) 62.5 % CO(MOD-sp4) 1.1 l/min CI(MOD-sp4) 0.74 l/min/m\S\2 SV(MOD-sp4) 18.0 ml SI(MOD-sp4) 12.3 ml/m\S\2 CO(MOD-sp2) 1.2 l/min CI(MOD-sp2) 0.82 l/min/m\S\2 SV(MOD-sp2) 20.0 ml SI(MOD-sp2) 13.6 ml/m\S\2 Doppler Measurements and Calculations MV E max lalit 67.6 cm/sec MV A max lalit 98.2 cm/sec MV E/A 0.69 MV dec time 0.24 sec Ao V2 max 118.3 cm/sec Ao max PG 5.6 mmHg Ao max PG (full) 2.0 mmHg ADDIE(V,A) 2.2 cm\S\2 ADDIE(V,D) 2.2 cm\S\2 LV V1 max PG 3.6 mmHg LV V1 max 94.8 cm/sec PA V2 max 77.0 cm/sec PA max PG 2.4 mmHg TR max lalit 235.6 cm/sec
[2016-10-28 11:22] VITALS: BP_SYST 180; BP_SYST 188; BP_DIAS 74; PULSE 59; TEMP 36.9; O2SAT 97
--- NOTE | 2016-10-28 12:50 | EMERGENCY ROOM VISIT NOTE ---
ED Visit Note First contact with patient: 13:31 HPI: CP, constant since 9pm. PE: AFVSS, NAD NC/AT RRR, no murmurs CTAB Abd soft NT/ND Ext: no edema, erythema Neuro: grossly intact Plan: Trop negative in the setting > 6 hours of constant CP. EKG without acute ischemia. CXR negative. CT chest negative for PE. Considering elderly patient with persistent CP, admitted to medicine service for further management. I reviewed the patient's past medical history, medications, and visit nursing notes. I discussed the case with the physician medical staff assistant, examined the patient, and agree with the findings and plan as documented in the physician assistants note. Problem List Medical Problems: (1) Anxiety Status: Chronic (2) CKD (chronic kidney disease) stage 3, GFR 30-59 ml/min Status: Chronic (3) Compression fracture Status: Resolved (4) Compression fracture Status: Resolved (5) Constipation Status: Chronic (6) Essential hypertension Status: Chronic (7) Gastroesophageal reflux disease Status: Chronic (8) Tonsil cancer Status: Resolved Surgical Problems: (1) H/O colonoscopy Status: Resolved (2) H/O endoscopy Status: Resolved (3) History of cholecystectomy Status: Chronic (4) Pacemaker Permanent Comment: H/O Bradycardia Status: Chronic (5) Status post cholecystectomy Status: Resolved (6) TONSIL SURGERY Status: Resolved Current/Historical Medications Scheduled Alendronate Sodium (Fosamax), 70 MG PO WK Amlodipine Besylate (Norvasc), 2.5 MG PO DAILY Lisinopril (Prinivil), 2.5 MG PO DAILY Scheduled PRN Acetaminophen (Tylenol), 2 TAB PO AMPM PRN for Pain Clonazepam (Klonopin), 0.5 MG PO BID PRN for Anxiety Allergies Coded Allergies: Sulfa Antibiotics (Verified Allergy, Unknown, RASH, 10/27/16) Vital Signs Date Time Temp Pulse Resp B/P (MAP) Pulse Ox O2 Delivery O2 Flow Rate FiO2 10/27/16 15:10 60 15 97 10/27/16 15:05 60 16 96 10/27/16 15:00 178/85 10/27/16 14:50 60 15 97 10/27/16 14:45 189/88 10/27/16 14:35 61 18 98 10/27/16 14:30 196/88 10/27/16 14:20 60 15 98 8/6/17 14:15 179/79 10/27/16 14:13 60 15 99 Room Air 10/27/16 14:00 157/82 10/27/16 13:58 66 17 95 Room Air 10/27/16 13:53 60 15 97 Room Air 10/27/16 13:51 170/82 10/27/16 13:48 60 7 97 Room Air 10/27/16 13:45 60 10/27/16 13:38 196/87 10/27/16 13:35 Room Air 10/27/16 13:26 36.7 60 18 163/75 97 Room Air Laboratory Results 10/27/16 13:50 Red Blood Count 4.14, Mean Corpuscular Volume 99.3, Mean Corpuscular Hemoglobin 34.1, Mean Corpuscular Hemoglobin Concent 34.3, Mean Platelet Volume 8.8, Neutrophils (%) (Auto) 71.7, Lymphocytes (%) (Auto) 19.5, Monocytes (%) (Auto) 8.0, Eosinophils (%) (Auto) 0.6, Basophils (%) (Auto) 0.1, Neutrophils # (Auto) 4.93, Lymphocytes # (Auto) 1.34, Monocytes # (Auto) 0.55, Eosinophils # (Auto) 0.04, Basophils # (Auto) 0.01 10/27/16 13:50 Test 10/27/16 13:50 10/27/16 14:00 White Blood Count 6.88 K/uL (4.8-10.8) Red Blood Count 4.14 M/uL (4.2-5.4) Hemoglobin 14.1 g/dL (12.0-16.0) Hematocrit 41.1 % (37-47) Mean Corpuscular Volume 99.3 fL (80-100) Mean Corpuscular Hemoglobin 34.1 pg (25-34) Mean Corpuscular Hemoglobin Concent 34.3 g/dl (32-36) Platelet Count 151 K/uL (130-400) Mean Platelet Volume 8.8 fL (7.4-10.4) Neutrophils (%) (Auto) 71.7 % Lymphocytes (%) (Auto) 19.5 % Monocytes (%) (Auto) 8.0 % Eosinophils (%) (Auto) 0.6 % Basophils (%) (Auto) 0.1 % Neutrophils # (Auto) 4.93 K/uL (1.4-6.5) Lymphocytes # (Auto) 1.34 K/uL (1.2-3.4) Monocytes # (Auto) 0.55 K/uL (0.11-0.59) Eosinophils # (Auto) 0.04 K/uL (0-0.5) Basophils # (Auto) 0.01 K/uL (0-0.2) RDW Standard Deviation 48.4 fL (36.4-46.3) RDW Coefficient of Variation 13.4 % (11.5-14.5) Immature Granulocyte % (Auto) 0.1 % Immature Granulocyte # (Auto) 0.01 K/uL (0.00-0.02) Prothrombin Time 10.9 SECONDS (9.0-12.0) Prothromb Time International Ratio 1.0 (0.9-1.1) Activated Partial Thromboplast Time 25.6 SECONDS (21.0-31.0) Partial Thromboplastin Ratio 1.0 Anion Gap 5.0 mmol/L (3-11) Est Creatinine Clear Calc Drug Dose 35.4 ml/min Estimated GFR () 78.7 Estimated GFR (Non- 67.9 BUN/Creatinine Ratio 20.3 (10-20) Calcium Level 8.9 mg/dl (8.5-10.1) Magnesium Level 2.2 mg/dl (1.8-2.4) Total Bilirubin 0.3 mg/dl (0.2-1) Aspartate Amino Transf (AST/SGOT) 20 U/L (15-37) Alanine Aminotransferase (ALT/SGPT) 20 U/L (12-78) Alkaline Phosphatase 58 U/L (45-117) Total Protein 7.1 gm/dl (6.4-8.2) Albumin 3.7 gm/dl (3.4-5.0) Globulin 3.4 gm/dl (2.5-4.0) Albumin/Globulin Ratio 1.1 (0.9-2) Lipase 256 U/L (73-393) Urine Color YELLOW Urine Appearance CLEAR (CLEAR) Urine pH 7.0 (4.5-7.5) Urine Specific [place] 1.016 (1.000-1.030) Urine Protein NEG (NEG) Urine Glucose (UA) NEG (NEG) Urine Ketones NEG (NEG) Urine Occult Blood TRACE (NEG) Urine Nitrite NEG (NEG) Urine Bilirubin NEG (NEG) Urine Urobilinogen NEG (NEG) Urine Leukocyte Esterase NEG (NEG) Urine WBC (Auto) 1-5 /hpf (0-5) Urine RBC (Auto) 10-30 /hpf (0-4) Urine Hyaline Casts (Auto) 0 /lpf (0-5) Urine Epithelial Cells (Auto) 10-20 /lpf (0-5) Urine Bacteria (Auto) NEG (NEG) Urine Yeast (Auto) (NONE PRSENT) Date/Time Source Procedure Growth Status 10/27/16 14:00 Urine , Clean Catch Urine Culture - Final MORE THAN THREE TYPES OF ORGANISMS OH... Complete Medications Administered Medications (Trade) Dose Ordered Sig/Francine Route Start Time Stop Time Status Last Admin Dose Admin Aspirin (Aspirin Chew) 324 mg NOW STAT PO 10/27/16 13:42 10/27/16 13:44 DC 10/27/16 13:56 324 MG Nitroglycerin (Nitrostat Tab) 0.4 mg Q5M STAT SL 10/27/16 13:42 10/27/16 13:44 DC 10/27/16 13:56 0.4 MG Sodium Chloride 1,000 ml @ 125 mls/hr Q8H STAT IV 10/27/16 13:52 10/27/16 19:38 DC 10/27/16 13:59 125 MLS/HR Departure Information Impression Primary Impression: Substernal precordial chest pain Dispostion Still a Patient Condition GOOD Referrals Beatrice Kennedy D.OWander (PCP) Forms HOME CARE DOCUMENTATION FORM, IMPORTANT VISIT INFORMATION Patient Instructions [facility]
[2016-10-28 15:58] VITALS: BP_SYST 139; BP_SYST 157; BP_DIAS 72; BP_DIAS 76; PULSE 61
--- NOTE | 2016-10-28 16:02 | Discharge Instructions ---
Discharge Instructions Date of Service Oct 28, 2016. Admission Reason for Admission: Chest Pain Discharge Discharge Diagnosis / Problem: Atypical chest pain, HTN, Anxiety Discharge Goals Goal(s): Decrease discomfort, Improve function, Improve disease control Activity Recommendations Activity Limitations: resume your previous activity (as tolerated) . Instructions / Follow-Up Instructions / Follow-Up Follow up appointment with Dr. Benoit on Saturday 11/04 @ 2:45 pm Monitor blood pressure Current Hospital Diet Patient's current hospital diet: Regular Diet Discharge Diet Recommended Diet: Low Sodium Diet (2gm Na) Pending Studies Studies pending at discharge: no Laboratory Results Lipid Panel Test 10/28/16 07:31 Range/Units Triglycerides Level 70 0-150 mg/dl Cholesterol Level 151 0-200 mg/dl HDL Cholesterol 65 mg/dl Cholesterol/HDL Ratio 2.3 LDL Cholesterol, Calculated 72 mg/dl Medical Emergencies . Who to Call and When: Medical Emergencies: If at any time you feel your situation is an emergency, please call 911 immediately. . Non-Emergent Contact Non-Emergency issues call your: Primary Care Provider Call Non-Emergent contact if: your pain is worsening, you have any medication questions . . "Provider Documentation" section prepared by Rosina Cedeño. . VTE Core Measure Inpt VTE Proph given/why not?: Unfractionated heparin SQ
[2016-10-28 16:16] VITALS: BP 139/76; PULSE 61; TEMP 36.9; O2SAT 97
--- NOTE | 2016-11-04 17:16 | Discharge Summary ---
Discharge Summary Date of Service Nov 04, 2016. Discharge Summary Admission Date: Oct 27, 2016 at 17:21 Discharge Date: Oct 28, 2016 Discharge Disposition: Home Principal Diagnosis: Chest Pain Secondary Diagnoses/Problems: Atypical chest pain HTN Anxiety Procedures: 2D ECHO Interpretation Summary * Name: ADRIA MAC Study Date: 10/28/2016 08:39 AM BP: 148/63 mmHg * Patient Location: [facility]\\S\\[id number]\\[id number]\\[id number] HR: 77 * : 1925 (M/d/yyyy) Gender: Female Height: 65 in * Age: 89 yrs Ethnicity: [place] Weight: 99 lb * Ordering Physician: Stephy Sheets * Performed By: Yessy Hooper * * Reason For Study: CHEST PAIN * BSA: 1.5 m2 * -- Conclusions -- * The left ventricle is normal in size. * Ejection Fraction = 60-65%. * The left ventricular wall motion is normal. * Grade I diastolic dysfunction, (abnormal relaxation pattern). * The right ventricular systolic function is normal. * The left atrial size is normal. * Right atrial size is normal. Procedure Details * A complete two-dimensional transthoracic echocardiogram was performed (2D, M- mode, Doppler and color flow Doppler). Left Ventricle * The left ventricle is normal in size. * Ejection Fraction = 60-65%. * Left ventricular systolic function is normal. * The left ventricular wall motion is normal. Right Ventricle * There is a pacemaker lead in the right ventricle. * The right ventricle is normal size. * The right ventricular systolic function is normal. Atria * The left atrial size is normal. * Right atrial size is normal. * No ASD detected; PFO is not assessed. Mitral Valve * The mitral valve is grossly normal. * Significant mitral regurgitation is absent. Tricuspid Valve * The tricuspid valve leaflets are thickened and/or calcified, but open well. * Significant tricuspid regurgitation is absent. Aortic Valve * The aortic valve is not well visualized. * No hemodynamically significant valvular aortic stenosis. * Trace aortic regurgitation. Pulmonic Valve * The pulmonic valve is not well visualized. Great Vessels * The aortic root and proximal ascending aorta are normal sized. Pericardium/Pleural * There is no pericardial effusion. Left Ventricular Diastolic Function * Grade I diastolic dysfunction, (abnormal relaxation pattern). BILATERAL LOWER EXTREMITY VENOUS DOPPLER HISTORY: Leg swelling. rule out DVT COMPARISON STUDY: None. FINDINGS: There is normal compressibility, flow, and augmentation within the bilateral lower extremity deep venous systems. IMPRESSION: No DVT within the right or left lower extremity. Electronically signed by: Osmani Keller M.D. 10/27/2016 7:28 PM Dictated Date/Time: 10/27/2016 7:28 PM CHEST CTA for PULMONARY ARTERIES CT DOSE: 189.25 mGy.cm HISTORY: Left-sided chest pain. TECHNIQUE: Multiaxial CT images of the chest were performed following the intravenous administration of contrast to evaluate the pulmonary arteries. Maximal intensity projection images were also obtained. A dose lowering technique was utilized adhering to the principles of ALARA. COMPARISON STUDY: Abdomen and pelvis CT 06/21/2016. FINDINGS: Old mild compression deformities at T9 and T12. The normal caliber thoracic aorta shows no evidence for dissection. The heart is normal in size. No pleural or pericardial effusions. Left-sided pacemaker. No filling defects within the pulmonary arteries to suggest pulmonary embolus. No acute rib fractures. No pneumothorax. The central airways are patent. Mild emphysema. Linear densities at the lingula favor subsegmental atelectasis or scarring. Focal consolidation within the right lung apex with associated traction bronchiectasis and calcification. Therefore, this favors chronic scarring. Cluster of calcified granulomas within the right lower lobe medially. There is also small focal consolidation seen within the base of the right lower lobe posteriorly which is similar to the prior abdomen and pelvis CT. Therefore, this favors chronic atelectasis or scar. The visualized liver and spleen are unremarkable. Questionable thickening of the body of the stomach may be due to underdistention. No mediastinal or hilar lymphadenopathy. IMPRESSION: 1. No evidence for pulmonary embolus. 2. Mild emphysema. 3. Small focal consolidation within the base of the right lower lobe remains unchanged and likely represents chronic atelectasis or scar. 4. Partially calcified scarlike opacity within the right lung apex. 5. Questionable thickening of the body stomach may be due to underdistention. Electronically signed by: Osmani Keller M.D. 10/27/2016 3:42 PM Dictated Date/Time: 10/27/2016 3:32 PM Medication Reconciliation Continued Medications: Acetaminophen (Tylenol) 500 Mg Tab 2 TAB PO AMPM PRN for Pain Alendronate Sodium (Fosamax) 70 Mg Tab 70 MG PO WK, #4 TAKES THURSDAYS Amlodipine Besylate (Norvasc) 5 Mg Tab 2.5 MG PO DAILY, TAB Clonazepam (Klonopin) 0.5 Mg Tab 0.5 MG PO BID PRN for Anxiety Lisinopril (Prinivil) 5 Mg Tab 2.5 MG PO DAILY, TAB Admission Information HPI (per Admitting provider): Patient is an 89 yo female who resides alone, who came in today for complaints of chest pain that began last night while at rest, and that has continued on today without changing. Her daughter lives in the area and checks in on her every other day and decided to bring the patient in today. The patient did not call anyone last night to tell them about this pain. She denies any associated symptoms of palpitations, SOB, cough, N/V, or diaphoresis. She states she has been in her good usual state of health until last night. She denies any falls, injuries, or twisting movements that might have preceded the pain. Her pain is not made worse by anything except movement and deep breathing. No tenderness to palpation. No recent medication changes. Physical Exam (per Admitting): General Appearance: WD/WN, no apparent distress, + thin Head: normocephalic, atraumatic Eyes: PERRL, EOMI, sclerae normal ENT: hearing grossly normal Neck: supple, no JVD, no carotid bruits, trachea midline Respiratory/Chest: lungs clear, normal breath sounds, no respiratory distress, + pertinent finding (pain across left chest from sternum to below left axilla worse with deep breath) Cardiovascular: regular rate, rhythm, no gallop, no JVD, no murmur Abdomen/GI: normal bowel sounds, non tender, soft, no organomegaly Extremities/Musculoskelatal: no calf tenderness, normal capillary refill, + pedal edema Neurologic/Psych: no motor/sensory deficits, alert, normal mood/affect, oriented x 3 Skin: normal color, warm/dry, no rash Hospital Course CHEST PAIN Atypical features Possible related to musculoskeletal etiology or GI etiology Need to R/O ACS All 3 sets CM negative EKG showed no ischemic changes CTA chest done showed no evidence for PE Doppler of LE showed no DVT EGD done in June showed diffuse gastritis and she was advised to stop taking Fosamax, will defer to pcp to d/c Received Aspirin in the ER Continue PPI Incentive spirometry ECHO pending Asymptomatic currently HTN: BP elevated, might be situational (being in the hospital), anxiety On amlodipine 2.5 mg and lisinopril 2.5 mg Consider to increase the lisinopril to 5 mg daily if BP stays elevating Will continue monitor BP ANXIETY: stable continue clonopin BRADYCARDIA: s/p pacemaker follows with Cardiology Dr. Abarca as outpatient DVT px on heparin subq CODE STATUS DNR Total time spent on discharge = 40 minutes This includes examination of the patient, discharge planning, medication reconciliation, and communication with other providers. Discharge Instructions Discharge Instructions Date of Service Oct 28, 2016. Admission Reason for Admission: Chest Pain Discharge Discharge Diagnosis / Problem: Atypical chest pain, HTN, Anxiety Discharge Goals Goal(s): Decrease discomfort, Improve function, Improve disease control Activity Recommendations Activity Limitations: resume your previous activity (as tolerated) . Instructions / Follow-Up Instructions / Follow-Up Follow up appointment with Dr. Benoit on Saturday 11/04 @ 2:45 pm Monitor blood pressure Current Hospital Diet Patient's current hospital diet: Regular Diet Discharge Diet Recommended Diet: Low Sodium Diet (2gm Na) Pending Studies Studies pending at discharge: no Laboratory Results Lipid Panel Test 10/28/16 07:31 Range/Units Triglycerides Level 70 0-150 mg/dl Cholesterol Level 151 0-200 mg/dl HDL Cholesterol 65 mg/dl Cholesterol/HDL Ratio 2.3 LDL Cholesterol, Calculated 72 mg/dl Medical Emergencies . Who to Call and When: Medical Emergencies: If at any time you feel your situation is an emergency, please call 911 immediately. . Non-Emergent Contact Non-Emergency issues call your: Primary Care Provider Call Non-Emergent contact if: your pain is worsening, you have any medication questions . . "Provider Documentation" section prepared by Rosina Cedeño. . VTE Core Measure Inpt VTE Proph given/why not?: Unfractionated heparin SQ Additional Copies To Beatrice Kennedy D.O.
== END 2016-10-28 17:17 | disposition home or self-care (01) ==
LOC: C.EDB 13:24 → C.MED 17:21 → ENRESERV 17:56
PROVIDERS: ADMIT Internal Medicine; ATTEND Internal Medicine
DX: R07.2 Precordial pain (principal); F41.9 Anxiety disorder, unspecified; I10 Essential (primary) hypertension; N18.3 Chronic kidney disease, stage 3 (moderate); I12.9 Hypertensive chronic kidney disease with stage 1 through stage 4 chronic kidney disease, or unspecified chronic kidney disease; K21.9 Gastro-esophageal reflux disease without esophagitis; Z90.49 Acquired absence of other specified parts of digestive tract; Z95.0 Presence of cardiac pacemaker; Z83.3 Family history of diabetes mellitus; Z82.49 Family history of ischemic heart disease and other diseases of the circulatory system; Z84.1 Family history of disorders of kidney and ureter; N28.89 Other specified disorders of kidney and ureter

== ENCOUNTER 2017-05-05 14:52 | Emergency (ER) | payer OTHER ==
[~2017-05-05] VITALS: Ht 165.1 cm; Wt 45.3 kg
[~2017-05-05 14:52] MED LIST changes: -PANT1TAB48 PO
[2017-05-05 15:04] VITALS: BP 147/80; PULSE 64; TEMP 36.8; O2SAT 98; Ht 165.1 cm; Wt 45.3 kg
== END 2017-05-05 15:33 | disposition left against medical advice (07) ==
LOC: C.EDB 14:54
DX: M25.471 Effusion, right ankle (principal); M25.472 Effusion, left ankle; Z53.21 Procedure and treatment not carried out due to patient leaving prior to being seen by health care provider

== ENCOUNTER 2017-07-08 11:12 | Emergency (ER) | payer OTHER ==
[~2017-07-08] VITALS: Ht 165.1 cm; Wt 45.1 kg
[2017-07-08 11:16] VITALS: TEMP 36.9; Ht 165.1 cm; Wt 45.1 kg
[2017-07-08] MEDS ORDERED: OPTIRAY 320 IV PRN (12:15)
[2017-07-08 12:18] LABS: BASO % 0.2 %; BASO ABS # 0.01 K/uL (0-0.2); EOS % 0.5 %; EOS ABS # 0.03 K/uL (0-0.5); HEMATOCRIT 41.6 % (37-47); HEMOGLOBIN 13.8 g/dL (12.0-16.0); IG# 0.01 K/uL (0.00-0.02); LYMPH % 22.8 %; LYMPH ABS # 1.32 K/uL (1.2-3.4); MEAN CORPUSCULAR HEMOGLOBIN 32.9 pg (25-34); MEAN CORPUSCULAR HGB CONC 33.2 g/dl (32-36); MEAN PLATELET VOLUME 8.4 fL (7.4-10.4); MONO % 8.3 %; MONO ABS # 0.48 K/uL (0.11-0.59); NEUT ABS # 3.94 K/uL (1.4-6.5); PLATELET COUNT 166 K/uL (130-400); RED CELL DISTRIBUTION WIDTH CV 13.5 % (11.5-14.5); RED CELL DISTRIBUTION WIDTH SD 48.5 fL (36.4-46.3); WHITE BLOOD COUNT 5.79 K/uL (4.8-10.8)
[2017-07-08 12:37] LABS: CALCIUM 9.3 mg/dl (8.5-10.1); CREATININE 0.88 mg/dl (0.60-1.20)
--- NOTE | 2017-07-08 13:19 | DIAGNOSTIC IMAGING REPORT ---
SOFT TISSUE NECK WITH CLINICAL HISTORY: 89 years-old Female presenting with rt jaw pain, eval for abscess. TECHNIQUE: Multidetector CT of the neck was performed after the administration of intravenous contrast. IV contrast: 93 mL of Optiray 320. A dose lowering technique was used consistent with the principles of ALARA (as low as reasonably achievable). COMPARISON: None. CT DOSE (mGy.cm): The estimated cumulative dose is 298.11 mGycm. FINDINGS: Front Office Java Developer topogram: Left subclavian 2-lead pacer noted. Partially visualized implanted cardiac device in the anterior left chest wall. No lymphadenopathy. Slight asymmetry of the parotid glands with relative atrophy on the right. Submandibular and thyroid glands normal. Several maxillary and mandibular teeth are absent. Prominent dental caries. Periapical lucency noted at the right mandibular first molar. Associated buccal hyperenhancement. No evidence of an odontogenic abscess. Mild mucosal thickening in the maxillary sinuses. Mastoid air cells clear. Middle ears clear. No suspicious enhancement in the nasal cavity, nasopharynx, oral cavity, oropharynx, larynx, or hypopharynx. Upper trachea normal. Pleural parenchymal scarring noted at the apices greater on the right possibly indicating post radiation change. Atherosclerosis without significant narrowing of the cervical vasculature. Degenerative changes of the cervical spine. IMPRESSION: 1. Extensive dental caries with periapical lucency at the right mandibular first molar. Associated buccal hyperenhancement consistent with inflammatory change. No evidence of an odontogenic abscess at this time. Electronically signed by: Ronald Yuen M.D. 07/08/2017 1:18 PM Dictated Date/Time: 07/08/2017 1:13 PM
[2017-07-08] MEDS ORDERED: AMOXICILLIN/CLAVULANATE TAB 875 MG TAB PO ONE (14:30)
[2017-07-08] MEDS ORDERED: AMOX875T PO (14:32)
[2017-07-08 14:35] VITALS: BP 164/89; PULSE 78; O2SAT 98
--- NOTE | 2017-07-08 14:43 | EMERGENCY ROOM VISIT NOTE ---
History Report prepared by Shanellibvivian: Ousmane Kimball Under the Supervision of: Dr. Corey Cruz M.D. First contact with patient: 11:55 Chief Complaint: FACIAL PAIN/INJURY Stated Complaint: PAIN RT SIDE OF FACE History of Present Illness The patient is a 89 year old female who presents to the Emergency Room with complaints of constant right facial pain beginning two days ago. She localizes the pain to her right jaw. Her pain in worsened with opening her jaw. The patient feels that her pain may be coming from her teeth. She rates her pain as a 10/10 in severity. She states "I have a bunch of bad teeth". The patient denies any fevers, chest pain, SOB, difficulty swallowing, ear pain, abdominal pain, numbness, or weakness. She is not on any blood thinners. She has a pacemaker in place. The patient denies recent falls or trauma. She has a problem with her left eye for which she has seen three eye doctors. Source of History: patient Onset: Two days ago Position: jaw (right) Quality: other (10/10) Timing: constant Modifying Factors (Worsening): other (opening jaw) Associated Symptoms: No fevers, No chest pain, No SOB, No abdominal pain, No weakness, No numbness Note: The patient denies any difficulty swallowing, or ear pain. Review of Systems See HPI for pertinent positives & negatives. A total of 10 systems reviewed and were otherwise negative. Past Medical & Surgical Medical Problems: (1) Anxiety (2) Chest pain (3) CKD (chronic kidney disease) stage 3, GFR 30-59 ml/min (4) Compression fracture (5) Compression fracture (6) Constipation (7) Essential hypertension (8) Gastroesophageal reflux disease (9) Tonsil cancer Surgical Problems: (1) H/O colonoscopy (2) H/O endoscopy (3) History of cholecystectomy (4) Pacemaker (5) Status post cholecystectomy (6) TONSIL SURGERY Old medical records were reviewed. Nurse's notes were reviewed and I agree with. Family History Diabetes mellitus FH: cancer BROTHER SISTER FH: heart disease Hypertension Kidney disease FATHER Social History Smoking Status: Never Smoker Alcohol Use: none Drug Use: none Marital Status: Housing Status: lives with family Occupation Status: retired Current/Historical Medications Scheduled Amlodipine Besylate (Norvasc), 2.5 MG PO DAILY Amoxicillin & Pot Clavulanate (Augmentin 875-125 mg), 875 MG PO BID Lisinopril (Prinivil), 2.5 MG PO DAILY Scheduled PRN Acetaminophen (Tylenol), 2 TAB PO AMPM PRN for Pain Clonazepam (Klonopin), 0.5 MG PO BID PRN for Anxiety Allergies Coded Allergies: Sulfa Antibiotics (Verified Allergy, Intermediate, RASH, 07/08/17) Physical Exam Vital Signs Date Time Temp Pulse Resp B/P (MAP) Pulse Ox O2 Delivery O2 Flow Rate FiO2 07/08/17 14:35 78 18 164/89 98 Room Air 07/08/17 13:16 84 18 174/95 98 Room Air 07/08/17 11:16 36.9 74 18 158/78 98 Room Air Physical Exam General: Non-ill appearing, slender older male in no acute distress. HEENT: Normal cephalic atraumatic. Pupils are equal round and reactive to light. Extraocular movements are intact. Oropharynx is pink with moist mucous membranes. No swelling of the mouth lips or tongue. Very poor dentition. Right lower jaw with advanced dental caries. Minimal tooth left. Tender to palpation. No fluctuance. No Ladarius's angina. Neck: Supple with a midline trachea. No meningeal signs or stiffness, no JVD or bruits. No Stridor. Chest: Clear to auscultation bilaterally. No wheezes or rhonchi. No increased work of breathing. Heart: regular rate and rhythm. Abdomen: Soft nontender, nondistended without rebound guarding or rigidity. Extremities: No cyanosis clubbing or edema. No calf tenderness or assymetry Spine/Back. Non tender to palpation. No CVA tenderness Skin: Good turgor without rashes. Neurologic exam: Cranial nerves two through 12 are intact. Motor and sensation are intact and symmetrical throughout. Medical Decision & Procedures ER Provider Diagnostic Interpretation: Radiology results as stated below per my review and radiologist interpretation: SOFT TISSUE NECK WITH FINDINGS: Classification Control Clerk topogram: Left subclavian 2-lead pacer noted. Partially visualized implanted cardiac device in the anterior left chest wall. No lymphadenopathy. Slight asymmetry of the parotid glands with relative atrophy on the right. Submandibular and thyroid glands normal. Several maxillary and mandibular teeth are absent. Prominent dental caries. Periapical lucency noted at the right mandibular first molar. Associated buccal hyperenhancement. No evidence of an odontogenic abscess. Mild mucosal thickening in the maxillary sinuses. Mastoid air cells clear. Middle ears clear. No suspicious enhancement in the nasal cavity, nasopharynx, oral cavity, oropharynx, larynx, or hypopharynx. Upper trachea normal. Pleural parenchymal scarring noted at the apices greater on the right possibly indicating post radiation change. Atherosclerosis without significant narrowing of the cervical vasculature. Degenerative changes of the cervical spine. IMPRESSION: 1. Extensive dental caries with periapical lucency at the right mandibular first molar. Associated buccal hyperenhancement consistent with inflammatory change. No evidence of an odontogenic abscess at this time. Electronically signed by: Ronald Yuen M.D. 07/08/2017 1:18 PM Laboratory Results 07/08/17 12:10 Red Blood Count 4.20, Mean Corpuscular Volume 99.0, Mean Corpuscular Hemoglobin 32.9, Mean Corpuscular Hemoglobin Concent 33.2, Mean Platelet Volume 8.4, Neutrophils (%) (Auto) 68.0, Lymphocytes (%) (Auto) 22.8, Monocytes (%) (Auto) 8.3, Eosinophils (%) (Auto) 0.5, Basophils (%) (Auto) 0.2, Neutrophils # (Auto) 3.94, Lymphocytes # (Auto) 1.32, Monocytes # (Auto) 0.48, Eosinophils # (Auto) 0.03, Basophils # (Auto) 0.01 07/08/17 12:10 Test 07/08/17 12:10 White Blood Count 5.79 K/uL (4.8-10.8) Red Blood Count 4.20 M/uL (4.2-5.4) Hemoglobin 13.8 g/dL (12.0-16.0) Hematocrit 41.6 % (37-47) Mean Corpuscular Volume 99.0 fL (80-100) Mean Corpuscular Hemoglobin 32.9 pg (25-34) Mean Corpuscular Hemoglobin Concent 33.2 g/dl (32-36) Platelet Count 166 K/uL (130-400) Mean Platelet Volume 8.4 fL (7.4-10.4) Neutrophils (%) (Auto) 68.0 % Lymphocytes (%) (Auto) 22.8 % Monocytes (%) (Auto) 8.3 % Eosinophils (%) (Auto) 0.5 % Basophils (%) (Auto) 0.2 % Neutrophils # (Auto) 3.94 K/uL (1.4-6.5) Lymphocytes # (Auto) 1.32 K/uL (1.2-3.4) Monocytes # (Auto) 0.48 K/uL (0.11-0.59) Eosinophils # (Auto) 0.03 K/uL (0-0.5) Basophils # (Auto) 0.01 K/uL (0-0.2) RDW Standard Deviation 48.5 fL (36.4-46.3) RDW Coefficient of Variation 13.5 % (11.5-14.5) Immature Granulocyte % (Auto) 0.2 % Immature Granulocyte # (Auto) 0.01 K/uL (0.00-0.02) Anion Gap 4.0 mmol/L (3-11) Est Creatinine Clear Calc Drug Dose 30.9 ml/min Estimated GFR () 67.5 Estimated GFR (Non- 58.3 BUN/Creatinine Ratio 13.8 (10-20) Calcium Level 9.3 mg/dl (8.5-10.1) Laboratory studies as stated above per my review. Medications Administered Medications (Trade) Dose Ordered Sig/Francine Route Start Time Stop Time Status Last Admin Dose Admin Amoxicillin/ Clavulanate Potassium (Augmentin Tab) 875 mg ONE ONCE PO 07/08/17 14:30 07/08/17 14:31 DC 07/08/17 14:35 875 MG ED Course 1156: Past medical records reviewed. The patient was evaluated in room B4B, and a complete history and physical examination were performed. 1425: Upon reevaluation, the patient is resting comfortably. I discussed the results and treatment plan with her. She verbalized agreement of the treatment plan. The patient was discharged home. 1430: Ordered Augmentin Tab 875 mg PO. Medical Decision Differentials include, but are not limited to; dental caries, abscess, and parotid disease. This patient comes in as described above she has been having right jaw pain. She does have very poor dentition. On exam she appears non-ill. She does have very poor dentition. She is speaking and swallowing without difficulty. There is nothing to suggest cardiac disease. She has an extensive tooth decay on her right lower molar. It is tender to palpation there is no fluctuance. The floor the mouth is soft without little exam angina. The posterior oropharynx is wide open. IV access established and blood work was obtained. she has noticing a white count and nothing to suggest sepsis. I did a CAT scan of her soft tissue of her neck and she does have multiple extensive dental caries without any definite abscess. She is going to see her dentist on and has an appointment already. I will start her on Augmentin 875 mg twice a day for 10 days the first dose was given here. For pain, she can use ibuprofen and/ or Tylenol but do not exceed the [id number] recommended dosages. She was encouraged to return if: increasing pain, worsening of symptoms, significant facial swelling, shortness of breath, fever or chills, any new problems or concerns. She is happy to plan and discharged to home. Medication Reconcilliation Current Medication List: was personally reviewed by me Blood Pressure Screening Patient's blood pressure: Elevated blood pressure Blood pressure disposition: Referred to PCP Impression Primary Impression: Jaw pain Additional Impression: Dental caries Scribe Attestation The scribe's documentation has been prepared under my direction and personally reviewed by me in its entirety. I confirm that the note above accurately reflects all work, treatment, procedures, and medical decision making performed by me. Departure Information Dispostion Home / Self-Care Prescriptions Amoxicillin & Pot Clavulanate (Augmentin 875-125 mg) 1 Tab Tab 875 MG PO BID for 10 Days, #20 TAB Prov: Corey Cruz M.D. 07/08/17 Referrals Beatrice Kennedy DWanderOWander (PCP) Forms HOME CARE DOCUMENTATION FORM, IMPORTANT VISIT INFORMATION Patient Instructions My [facility] Additional Instructions Rest. Drink plenty of fluids. Use Augmentin 875 mg twice a day for 10 days totalantibiotic Use [id number] Tylenol with maximum of 650 mgs every 6 hours Do not take with any other medications that contain Tylenol/acetaminophen May also use [id number] ibuprofen 400 mg every 6 hours Follow-up with your dentist, keep your appointment on Return if: Increasing pain, facial swelling, worsening of symptoms, fever or chills, any new problems or concerns Problem Qualifiers
== END 2017-07-08 14:41 | disposition home or self-care (01) ==
LOC: C.EDB 11:13
DX: R68.84 Jaw pain (principal); K02.9 Dental caries, unspecified; F41.9 Anxiety disorder, unspecified; N18.3 Chronic kidney disease, stage 3 (moderate); I10 Essential (primary) hypertension; K21.9 Gastro-esophageal reflux disease without esophagitis; Z88.2 Allergy status to sulfonamides